=== PATIENT | male | born 1940 | race Caucasian/White ===

== ENCOUNTER 2018-04-12 15:15 | Inpatient (IN) | payer OTHER ==
--- OUTSIDE RECORDS SUMMARY | 2018-04-12 15:37 | XMS REPORT | Clinical Summary ---
:1940 Author Organization [facility] Address [address] [place] [address] Care Team Providers Name Role Phone Asked, No Pcp Primary Care Provider Unavailable Allergies No Known Allergies Medications Medication Sig Dispensed Refills Start Date End Date Status metFORMIN (GLUCOPHAGE) Take 1,000 mg by 0 Active 1000 MG tablet mouth 2 (two) times a day with meals. Active Problems Problem Noted Date Essential hypertension, benign 02/03/2016 Type II or unspecified type diabetes mellitus without mention of 02/03/2016 complication, uncontrolled Open wound of left foot 02/03/2016 GALDINO (obstructive sleep apnea) 02/03/2016 Heart block AV complete 02/02/2016 Family History Medical History Relation Name Comments Stroke Father Heart disease Mother Relation Name Status Comments Father Mother Social History Tobacco Use Types Packs/Day Years Used Date Former Smoker Alcohol Use Drinks/Week oz/Week Comments No Sex Assigned at Date Recorded Not on file Job Start Date Occupation Industry Not on file Not on file Not on file Travel History Travel Start Travel End No recent travel history available. Last Filed Vital Signs Not on file Plan of Treatment Health Maintenance Due Date Last Done Comments DIABETIC RETINAL EYE EXAM 1940 DIABETIC FOOT EXAM 1952 URINE MICROALBUMIN 1952 COLON CANCER SCREENING 1992 SHINGRIX VACCINE (1 of 2) 1992 ZOSTER VACCINE 2002 PNEUMOCOCCAL POLYSACCHARIDE VACCINE AGE 65 AND OVER 2007 PNEUMOCOCCAL-13 2007 INFLUENZA VACCINE 12/28/2017 Implants Implanted Type Area Reporting Coordinator Device Shelf Model / Identifier Expiration Serial / Date Lot Valve, 6248val, Adjustable, Us Mkt, En - [id number] Cardiac Pacing N/A: [employer] CRM 08/27/2016 [id number] / Implanted: 02/04/2016 (Quantity not on file) Leads or N/A [employer] / Electrodes or [id number] Accessories Lead, Pacemaker Bipolar Fix Forming Atrial And Ventricular Steroid Eluting 52 Centimeter Capsure Fix Novus - [id number] Cardiac Pacing N/A: [employer] [facility] 10/08/2017 5076 52 / Implanted: 02/04/2016 (Quantity not on file) Leads or N/A [employer] [id number] / Electrodes or [id number] Accessories Lead 5076-65 Lead-Bipolar Elisa Screw-In - Lead - [id number] Cardiac Pacing N/A: [employer] [facility] 03/27/2016 5076 65 / Implanted: 02/04/2016 (Quantity not on file) Leads or N/A [employer] [id number] / Electrodes or [id number] Accessories 88cm Attain Ability Otw Lead, Model 4196, Dual-Electrode Left Ventricular - [id number] Cardiac Pacing N/A: [facility] 07/30/2016 [id number] 88 / Implanted: 02/04/2016 (Quantity not on file) Leads or N/A [employer] [id number] / Electrodes or [id number] Accessories Safesheath2 - [id number] IPM SUPPLIES N/A: [employer] [facility]9 / Implanted: 02/04/2016 (Quantity not on file) PATIENT N/A [employer] / BILLABLE Safesheath2 - [id number] IPM SUPPLIES N/A: [employer] [facility] / Implanted: 02/04/2016 (Quantity not on file) PATIENT N/A [employer] / BILLABLE Safesheath2 - [id number] IPM SUPPLIES N/A: [employer] [facility] / Implanted: 02/04/2016 (Quantity not on file) PATIENT N/A [employer] 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 For more information, please contact:Delbert Vaguhan[address] [place] [address]
--- OUTSIDE RECORDS SUMMARY | 2018-04-12 15:37 | XMS REPORT ---
:1940 [facility] Address [address] [place] [address] Dr. Espinoza [address] [place] [id number] Care Team Providers Name Role Phone PAM GARDUNO Primary Care Provider Unavailable ISMAEL ALCAZAR Unavailable Unavailable Problems This patient has no known problems. Allergies, Adverse Reactions, Alerts This patient has no known allergies or adverse reactions. Medications This patient has no known medications. Encounters Start End Encounter Admission Attending Care Care Encounter Date/Time Date/Time Type Type Clinicians Facility Department ID 2017-01-28 2017-01-28 Outpatient [facility] [id number] 00:01:00 00:01:00 2016-12-28 2016-12-28 Outpatient [facility] [id number] 00:01:00 00:01:00 2016-11-27 2016-11-27 Outpatient [facility] [id number] 00:01:00 00:01:00 2016-10-28 2016-10-28 Outpatient [facility] [id number] 00:01:00 00:01:00 Results Test Description Test Time Test Comments Text Results Atomic Results Result Comments Culture, Wound Nonsurgical 2016-10-22 11:36:00 Specimen: FootCollected: 10/18/2016 13:00 Status: Final Last Updated: 10/22/2016 11:36 Gram Stain (Final) (Final) 10/19/16 No organsims seen, No WBC's seen Culture Result (Final) (Final) 10/19/16 Growth too young to evaluate at 24 hours-reincubated 10/20/16 Many Diphtheroids 10/21/16 Anaerobic culture:No anaerobes isolated at 3 days Culture, Wound Nonsurgical 2016-10-21 09:33:00 Specimen: ToeCollected: 13:00 Status: Final Last Updated: 10/21/2016 09:33 Gram Stain (Final) (Final) 10/19/16 No WBC'S , Few Gram variable rods Culture Result (Final) (Final) 10/19/16 Growth too young to evaluate at 24 hours-reincubated 10/20/16 Many Diphtheroids 10/21/16 Anaerobic culture:No anaerobes isolated at 3 days
[2018-04-12] MEDS ORDERED: ACETAMINOPHEN 325 MG TABLET PO PRN (16:23)
[2018-04-12] MEDS ORDERED: VANCOMYCIN/NS 1 gm 1 GM/250 ML BAG IVPB SCH ×2 (17:00→21:15)
[2018-04-12 17:03] VITALS: BMI 28.5
[2018-04-12] MEDS: PIPER/TAZO/NS 3.375gm 3.375 GM/100 ML BAG IV SCH (17:15)
[2018-04-12 17:19] LABS: Absolute Lymphocytes (CBC) 1.9 K/uL (0.7-4.9); Absolute Monocytes 0.9 K/uL (0.1-1.3); Basophils % 0.2 % (0-1.3); Eosinophils % 2.5 % (0-4.4); Hematocrit 38.9 % (39.6-49.0); Lymphocytes % 18.9 % (15.3-44.8); MCH 29.6 pg (27.0-35.0); MCV 86.3 fL (80-100); MPV 8.5 fL (7.6-11.3); Monocytes % 8.9 % (3.3-12.3); RBC Red Blood Cell Count 4.51 M/uL (4.33-5.43)
[2018-04-12 17:39] LABS: Protime INR 1.06
[2018-04-12 17:40] LABS: Potassium 4.2 mmol/L (3.5-5.1)
[2018-04-12 18:06] LABS: Blood Morphology Comment NOT SEEN (NOT SEEN); Platelet Estimate ADEQ; Urine White Blood Cell Casts OK
--- NOTE | 2018-04-12 20:15 | RAD REPORT ---
EXAM DESCRIPTION: Eva Pa And Lat (2 Views)04/12/2018 8:07 pm CLINICAL HISTORY: Hypertension COMPARISON: 2011 FINDINGS: Mild left basilar lung opacities probably are chronic. The lungs appear clear of acute infiltrate. The heart is mildly enlarged. Pacemaker leads are in naseem ce. IMPRESSION: No acute abnormalities displayed
[2018-04-12] MEDS ORDERED: GLUCAGON 1 MG/VIAL IM PRN (20:41)
[2018-04-12] MEDS ORDERED: D50W 25 GM/50 ML SYRINGE IV PRN (20:41)
--- NOTE | 2018-04-12 21:15 | P.HP ---
Certification for Inpatient Patient admitted to: Inpatient With expected LOS: >2 Midnights Practitioner: I am a practitioner with admitting privileges, knowledge of patient current condition, hospital course, and medical plan of care. Services: Services provided to patient in accordance with Admission requirements found in Title 42 Section 412.3 of the Code of Federal Regulations Patient History Date of Service: 04/12/18 Reason for admission: OSTEOMYELITIS R FOOT History of Present Illness: MR. SIMONS WHO HAS HAD DIABETIC OSTEOMYELITIS OF FOOT LAST YEAR, WAS DOING LOT BETTER THIS YEAR WITH RESIDUAL ULCERS BOTH FEET. FROM FOUR ULCERS HE WAS DOWN TO 3 ULCERS. ULCERS WERE GETTING SMALLER. WE HAVE TRIED TO GET HIM TWO DIFFERENT OFF LOADING BOOTS. HE REFUSES TO WEAR THEM THEY ARE UNCOMFORTABLE. HE CAN'T DRIVEWITH THEM. HE ALSO GETS HIS FEET WET WHEN IT RAINS AND HE HAS TO WALK THROUGH WET AREAS. I ASKED HIM IF HE DRIES THE FEET AND CLEANS THE ULCERS IF HE GOES THROUGH WET AREAS AND HE SAID NO. JUST AFTER A RAIN SPELL, ALL OF A SUDDEN HE GOT WORSE , THE ULCERS GOT TOO MOIST AND DEVELOPED TUNNING IN TWO AREAS ON ULCERS. I DEBRIDED. I DID X RAYS AND IT SHOWED NEW OSTEOMYELITIS ON R SIDE. TODAY HE HAS ONE MORE TUNNEL AT 1 PM AREA ON RIGHT ULCER TRACKING TO AN OPENING ABOUT AN INCH APART. I DECIDED TO ADMIT HIM FOR SURGICAL DEBRIDMENT UNDER ANESTHESIAIF NEED. I STARTED TWO ABX , ADIVSED PICC LINE AND POSSIBLE HOME OR NH WITH FU. Allergies No Known Allergies Allergy (Verified 04/12/18 17:20) Home Medications: Metformin HCl [Metformin HCl ER] 500 mg PO BID 08/03/17 Collagenase [Santyl Ointment] 30 appl TOP DAILY #1 tube 08/08/17 Amlodipine [Norvasc] 5 mg PO DAILY 10/27/17 Atorvastatin Calcium [Lipitor] 10 mg PO BEDTIME 10/27/17 Cholecalciferol (Vitamin D3) [Vitamin D3] 1,000 unit PO DAILY 10/27/17 Duloxetine HCl [Cymbalta] 30 mg PO DAILY 10/27/17 Furosemide [Lasix] 20 mg PO BID 10/27/17 Lidocaine 5% Patch [Lidoderm 5% Patch] 1 patch TD DAILY 10/27/17 Lisinopril [Prinivil] 20 mg PO BID 10/27/17 Loperamide [Imodium] 2 mg PO Q8HP PRN 10/27/17 Tramadol HCl [Ultram] 50 mg PO Q4HP PRN 10/27/17 diphenhydrAMINE HCl [Diphenhydramine HCl] 25 mg PO Q6HP PRN 10/27/17 glyBURIDE [Glyburide] 5 mg PO DAILY 10/27/17 - Past Medical/Surgical History Has patient received pneumonia vaccine in the past: Yes Diabetic: Yes -: Diabetes mellitus type 2 -: Hypertension -: CHF, systolic dysfunction -: History pacemaker -: Hyperlipidemia -: Obesity -: Obstructive sleep apnea -: Chronic lower extremity edema -: Chronic diabetic foot ulcers -: BPH -: Chronic pain -: Hernia repair -: sinus surgery -: right great toe partial amputation -: Appendectomy -: bilateral lens (cataract) Psychosocial/ Personal History: He currently lives by himself. He is . He has multiple children. - Family History Father -: Heart disease Mother -: Stroke - Social History Smoking Status: Former smoker Alcohol use: No CD- Drugs: No Caffeine use: Yes Place of Residence: Home Review of Systems 10-point ROS is otherwise unremarkable Integumentary: As per HPI Physical Examination - Vital Signs Temperature: 97.0 F Blood Pressure: 136/64 Pulse: 73 Respirations: 16 Pulse Ox (%): 98 - Physical Exam General: Alert, Mild distress HEENT: Atraumatic, PERRLA, Mucous membr. moist/pink, EOMI, Sclerae nonicteric Neck: Supple, 2+ carotid pulse no bruit, No LAD, Without JVD or thyroid abnormality Respiratory: Clear to auscultation bilaterally, Normal air movement Cardiovascular: Regular rate/rhythm, Normal S1 S2 Gastrointestinal: Normal bowel sounds, No tenderness Musculoskeletal: No tenderness Integumentary: Diabetic ulcer (WITH OSTEOMYELITIS R FOOT AND TOTAL ONE ULCER ON R PLANTER, ONE ON SECOND TOE R SIDE AND TWO ON L SIDE SOLE. ) Neurological: Normal gait, Normal speech, Normal strength at 5/5 x4 extr, Normal tone, Normal affect Lymphatics: No axilla or inguinal lymphadenopathy - Studies Laboratory Data (last 24 hrs) 04/12/18 17:06: Sodium 136, Potassium 4.2, BUN 48 H, Creatinine 1.70 H, Glucose 266 H 04/12/18 17:06: PT 12.5, INR 1.06, APTT 34.8 04/12/18 17:06: WBC 10.0, Hgb 13.3 L, Hct 38.9 L, Plt Count 278 Assessment and Plan - Problems (Diagnosis) (1) Diabetic foot ulcer Onset Date: 08/04/17 Current Visit: No Status: Acute Plan: DR COLMENARES TO DO SURGICAL DEBRIDEMENT. IV ABX POSS HOME OR NH FOR IT. Qualifiers: Diabetic foot ulcer location: other Diabetes mellitus type: type 2 (2) Osteomyelitis Onset Date: 08/04/17 Current Visit: No Status: Suspected Plan: ABOVE. MULTIPLE ULCERS. Qualifiers: Osteomyelitis location: foot Laterality: right - Advance Directives Does patient have a Living Will: No Does patient have a Durable POA for Healthcare: No
[2018-04-12] MEDS: INSULIN -REGULAR HUMAN 50 UNIT/0.5 ML ML SQ SCH (21:45)
[2018-04-12] MEDS ORDERED: VANCOMYCIN 1.25 GM in NA CHLORIDE 0.9% 250 ML IVPB SCH (22:00)
[2018-04-12] MEDS ORDERED: VANCOMYCIN 500 MG/VIAL ONE (22:56)
[2018-04-12] MEDS ORDERED: VANCOMYCIN 1 GM/VIAL ONE (22:56)
[2018-04-12] MEDS ORDERED: NA CHLORIDE 0.9% 250 ML ONE (23:00)
[2018-04-12] MEDS ORDERED: VANCOMYCIN 1.25 GM in NA CHLORIDE 0.9% 250 ML IVPB ONE (23:00)
[2018-04-13] MEDS: PIPER/TAZO/NS 3.375gm 3.375 GM/100 ML BAG IV SCH ×3 (01:19→17:00)
[2018-04-13 02:07] LABS: Urine Appearance CLEAR; Urine Bilirubin NEGATIVE (NEG); Urine Blood NEGATIVE (NEG); Urine Color YELLOW; Urine Glucose NEGATIVE (NEG); Urine Protein NEGATIVE (NEG); Urine Specific Gravity 1.015 (1.005-1.030); Urine Urobilinogen 0.2 mg/dL (0.2-1.0)
[2018-04-13 02:11] LABS: Urine Microscopic Reflex NO UMIC
[2018-04-13] MEDS: INSULIN -REGULAR HUMAN 50 UNIT/0.5 ML ML SQ SCH ×3 (07:30→16:30)
[2018-04-13] MEDS ORDERED: NA CHLORIDE 0.9% 1,000 ML ONE (09:25)
[2018-04-13] MEDS ORDERED: FENTANYL CITR 100 MCG/2 ML ONE (09:50)
[2018-04-13] MEDS ORDERED: PROPOFOL 200 MG/20 ML VIAL IV ONE (09:50)
[2018-04-13] MEDS ORDERED: LIDOCAINE 1% MPF 2 ML AMPULE ONE (09:52)
[2018-04-13] MEDS ORDERED: EPHEDRINE SULF 50 MG/10 ML SYR ONE (10:37)
[2018-04-13] MEDS ORDERED: COLLAGENASE 30 GM OINTMENT TOP ONE (10:39)
--- NOTE | 2018-04-13 10:40 | P.OP ---
Preoperative diagnosis: Infected diabetic ulcer both feet Postoperative diagnosis: same Primary procedure: Debridement right foot wound 5x3 cm to bone Secondary procedure: Debridement left foot wound 4x2 cm to sq and 2x3 cm to sq Anesthesia: general Estimated blood loss: min Specimen: bone and wound culture Findings: as above Complications: None Transferred to: Recovery Room Condition: Good
[2018-04-13 11:23] VITALS: O2SAT 97
--- NOTE | 2018-04-13 11:49 | OP ---
Date of Procedure: 04/13/2018 Surgeon: Ritchie Cunha MD Preoperative Diagnosis: Infected wound, both feet. Postoperative Diagnosis: Infected wound, both feet. Procedures: 1.Debridement of right foot wound, 5 x 3 cm, to subcutaneous tissue muscle and bone. 2.Debridement of left foot wound, 4 x 2 cm, to subcutaneous tissue, and 2 x 3 cm, subcutaneous tissu e. Estimated Blood Loss: Minimal. Specimen: Bone and culture from the infected wound on the right foot. Findings: As above. Anesthesia: General. Complications: None. Disposition: The patient tolerated the procedure in stable condition and taken to Recovery in good g eneral condition. Procedure In Detail: The patient was brought to the OR and placed in the supine position. General a nesthesia was begun. The patient was prepped and draped in sterile fashion and then a 15-blade, iris scissors, and cautery utilized, first on the right foot. There was an ulcer that was approximately 3 cm in diameter and about 2 cm away there was another ulcer that was approximately 1.5 cm in diamete r. They tunneled and connected to each other with some infected tissue deep to the plantar aspect of the first toe near the metatarsal head. A 5 x 3 cm incision was made to include both of these wound s down through subcutaneous tissue, muscle, and the metatarsal head appears to be exposed and eroded slightly. Cultures were done from the wound itself. All the necrotic tissue was debrided. Wound ir rigated. Bleeding controlled with cautery and collagenase dressing applied. On the left foot, the p atient had 2 ulcers that were not connected to each other, one on the medial aspect and one on the la teral aspect and near the metatarsal heads. One was approximately 2 cm in diameter, but had and larg e callus around it and infected tissue in it and debridement was done all the way around 4 x 2 cm inc ision was made down to the subcutaneous tissue and all nonhealing wound was excised and sent to Patho logy. There was another wound that was approximately 2 cm in diameter and 1 cm border was taken all the way around it to get all the callus and infected tissue out down through the subcutaneous tissue. Both wounds irrigated. Bleeding controlled with cautery. Collagenase dressing was applied. The p atient was awakened and taken to Recovery in good general condition. /MODL Voice ID: [id number] Report ID: [id number]
--- NOTE | 2018-04-13 12:35 | EKG ---
Test Date: 2018-04-12 Test Time: 17:38:01 Project Intern: CHRISTINE MEASUREMENT RESULTS: Intervals: Rate: 63 MA: QRSD: 190 QT: 504 QTc: 515 Jensen: P: MA: QRS: -90 T: 83 INTERPRETIVE STATEMENTS: Electronic ventricular pacemaker Compared to ECG 08/03/2017 11:55:58 Ventricular premature complex(es) no longer present Electronically Signed On 04-13-18 12:33:00 CLIENT MANAGER by José Pratt
--- NOTE | 2018-04-13 13:13 | P.PN ---
Subjective Date of Service: 04/13/18 Chief Complaint: OSTEOMYELITIS R FOOT Subjective: No new changes DR. COLMENARES DID SURGERY, DEBRIDEMENT. NOW IV ABX AT [facility]. Review of Systems 10-point ROS is otherwise unremarkable Physical Examination - Vital Signs Temperature: 97.4 F Blood Pressure: 121/52 Pulse: 60 Respirations: 16 Pulse Ox (%): 100 - Physical Exam General: Alert, Mild distress, Obese HEENT: Atraumatic, PERRLA, EOMI Neck: Supple, JVD not distended Respiratory: Clear to auscultation bilaterally, Normal air movement Cardiovascular: Regular rate/rhythm, Normal S1 S2 Gastrointestinal: Normal bowel sounds, No tenderness Musculoskeletal: No tenderness Integumentary: No rashes Neurological: Normal speech, Normal tone, Normal affect Lymphatics: No axilla or inguinal lymphadenopathy - Studies Laboratory Data (last 24 hrs) 04/12/18 17:06: Sodium 136, Potassium 4.2, BUN 48 H, Creatinine 1.70 H, Glucose 266 H 04/12/18 17:06: PT 12.5, INR 1.06, APTT 34.8 04/12/18 17:06: WBC 10.0, Hgb 13.3 L, Hct 38.9 L, Plt Count 278 Medications List Reviewed: Yes Assessment And Plan - Current Problems (Diagnosis) (1) Diabetic foot ulcer Onset Date: 08/04/17 Current Visit: No Status: Acute Plan: DR COLMENARES TO DO SURGICAL DEBRIDEMENT. IV ABX POSS HOME OR NH FOR IT. PICC LINE IV ABX LT[facility]. CULTURE PENDING , BONE CULTURE DONE. Qualifiers: Diabetic foot ulcer location: other Diabetes mellitus type: type 2 (2) Osteomyelitis Onset Date: 08/04/17 Current Visit: No Status: Suspected Plan: ABOVE. MULTIPLE ULCERS. Qualifiers: Osteomyelitis location: foot Laterality: right
--- NOTE | 2018-04-13 13:19 | PREOPCON ---
Date of Consultation: 04/12/2018 Reason: Infected wounds, both feet. History Of Present Illness: The patient is a 77-year-old gentleman comes in with nonhealing wounds o n both feet with possible osteo on the right foot. He has chronic diabetic ulcers for many years and they had improved, however, he is noncompliant with offloading and he gets into rain water and does not care for his wounds well as an outpatient and the ulcers have gotten worse. He saw Dr. Pool who admitted him with possible osteo because of increasing redness near the ulcers on the right foot and he started IV antibiotics and I was consulted for surgical debridement. No fever or chills. No pur ulent discharge. Diabetic neuropathy does not allow much sensation. He lives by himself. No sore t hroat, runny nose, cough, headaches, or dizziness. No chest pain. Review of Systems: Otherwise unremarkable. Past Medical History: Significant for type 2 diabetes, hypertension, CHF, hyperlipidemia, sleep apne a, and chronic pain. Past Surgical History: Pacemaker, hernia surgery, sinus surgery, right great toe partial amputation, appendectomy, and cataract surgery. Allergies: NO ALLERGIES. Social History: He used to smoke, does not smoke, does not drink. Family History: Significant for heart disease and stroke. Physical Examination: Vital Signs: Stable. He is afebrile. General: He is awake, alert, and oriented x3. Head and Neck: Cranial nerves 2 through 12 grossly within normal limits. No neck masses. No JVD. Throat clear. Neck is supple. Chest: Clear. Heart: S1 and S2. Abdomen: Soft. Extremities: Palpable dorsalis pedis and posterior tibial pulses. On the right foot, near the plant ar aspect of the first metatarsal head, there are 2 wounds, there is a surrounding erythema and they appeared to be possibly connecting. There is necrotic tissue in the wounds. There are 2 ulcers on t he plantar aspect of the left foot as well towards the metatarsal head the pressure points area and t hey have a significant amount of fibrin in it, need debridement and they have hypertrophic skin aroun d the edges and there is minimal erythema around those ulcers. Laboratory Data: White count is 10. INR is 1.06. Glucose 266. Bone scan is pending. Assessment: A 77-year-old gentleman with bilateral foot ulcers, infected, possible osteomyelitis. Recommendations: Continue IV antibiotics. We will take him to the operating room for surgical debri irais of all of the wounds and if they do connect, I will open up the tunnel. The patient was advis ed the importance of wound care, offloading and nutritional optimization, controlling his sugar, it w ill allow best chance for these wounds to heal. He understands the risks, benefits, and alternatives and agrees to procedure. ADELE/STEPHANIA Voice ID: [id number] Report ID: [id number]
[2018-04-13 19:19] VITALS: BP 153/67; TEMP 97.5
[2018-04-13] MEDS ORDERED: VANCOMYCIN 1.75 GM in NA CHLORIDE 0.9% 500 ML IVPB SCH (22:00)
--- NOTE | 2018-04-14 17:19 | P.DS ---
Admission Date: 04/12/18 Discharge Date: 04/14/18 Disposition: [facility] Reason for Admission: OSTEOMYELITIS R FOOT - Problems (1) Diabetic foot ulcer Onset Date: 08/04/17 Status: Acute Qualifiers: Diabetic foot ulcer location: other Diabetes mellitus type: type 2 (2) Osteomyelitis Onset Date: 08/04/17 Status: Suspected Qualifiers: Osteomyelitis location: foot Laterality: right Brief History of Present Illness: MR. SIMONS WHO HAS HAD DIABETIC OSTEOMYELITIS OF FOOT LAST YEAR, WAS DOING LOT BETTER THIS YEAR WITH RESIDUAL ULCERS BOTH FEET. FROM FOUR ULCERS HE WAS DOWN TO 3 ULCERS. ULCERS WERE GETTING SMALLER. WE HAVE TRIED TO GET HIM TWO DIFFERENT OFF LOADING BOOTS. HE REFUSES TO WEAR THEM THEY ARE UNCOMFORTABLE. HE CAN'T DRIVEWITH THEM. HE ALSO GETS HIS FEET WET WHEN IT RAINS AND HE HAS TO WALK THROUGH WET AREAS. I ASKED HIM IF HE DRIES THE FEET AND CLEANS THE ULCERS IF HE GOES THROUGH WET AREAS AND HE SAID NO. JUST AFTER A RAIN SPELL, ALL OF A SUDDEN HE GOT WORSE , THE ULCERS GOT TOO MOIST AND DEVELOPED TUNNING IN TWO AREAS ON ULCERS. I DEBRIDED. I DID X RAYS AND IT SHOWED NEW OSTEOMYELITIS ON R SIDE. TODAY HE HAS ONE MORE TUNNEL AT 1 PM AREA ON RIGHT ULCER TRACKING TO AN OPENING ABOUT AN INCH APART. I DECIDED TO ADMIT HIM FOR SURGICAL DEBRIDMENT UNDER ANESTHESIAIF NEED. I STARTED TWO ABX , ADIVSED PICC LINE AND POSSIBLE HOME OR NH WITH FU. MR. SIMONS UNDERWENT DEBRIDEMENT FOR BOTH FEET BY DR COLMENARES. HE ALSO DID BONE BIOPSY FOR OM. HE IN STABLE CONDITION IS TRANSFERRED TO [facility] FOR IV ABX AND MANAGEMENT OF OSTEOMYELITIS WITH HELP OF SHRADDHA CORREA. Vital Signs/Physical Exam: Temp Pulse Resp BP Pulse Ox 97.5 F 63 16 153/67 H 95 04/13/18 16:00 04/13/18 16:00 04/13/18 16:00 04/13/18 16:00 04/13/18 16:00 Laboratory Data at Discharge: WBC 10.0 K/uL (4.3-10.9) 04/12/18 17:06 Hgb 13.3 g/dL (13.6-17.9) L 04/12/18 17:06 Hct 38.9 % (39.6-49.0) L 04/12/18 17:06 Plt Count 278 K/uL (152-406) 04/12/18 17:06 PT 12.5 SECONDS (9.5-12.5) 04/12/18 17:06 INR 1.06 04/12/18 17:06 APTT 34.8 SECONDS (24.3-36.9) 04/12/18 17:06 Sodium 136 mmol/L (136-145) 04/12/18 17:06 Potassium 4.2 mmol/L (3.5-5.1) 04/12/18 17:06 BUN 48 mg/dL (7-18) H 04/12/18 17:06 Creatinine 1.70 mg/dL (0.55-1.3) H 04/12/18 17:06 Glucose 266 mg/dL (74-106) H 04/12/18 17:06 Home Medications: Metformin HCl [Metformin HCl ER] 500 mg PO BID 08/03/17 Collagenase [Santyl Ointment] 30 appl TOP DAILY #1 tube 08/08/17 Amlodipine [Norvasc] 5 mg PO DAILY 10/27/17 Atorvastatin Calcium [Lipitor] 10 mg PO BEDTIME 10/27/17 Cholecalciferol (Vitamin D3) [Vitamin D3] 1,000 unit PO DAILY 10/27/17 Duloxetine HCl [Cymbalta] 30 mg PO DAILY 10/27/17 Furosemide [Lasix] 20 mg PO BID 10/27/17 Lidocaine 5% Patch [Lidoderm 5% Patch] 1 patch TD DAILY 10/27/17 Lisinopril [Prinivil] 20 mg PO BID 10/27/17 Loperamide [Imodium] 2 mg PO Q8HP PRN 10/27/17 Tramadol HCl [Ultram] 50 mg PO Q4HP PRN 10/27/17 diphenhydrAMINE HCl [Diphenhydramine HCl] 25 mg PO Q6HP PRN 10/27/17 glyBURIDE [Glyburide] 5 mg PO DAILY 10/27/17 Followup: Avila Pool MD [Primary Care Provider] - Ritchie Colmenares MD [ACTIVE - CAN ADMIT] -
== END 2018-04-13 18:10 | DRG 623 ==
LOC: 2ND 15:34
PROVIDERS: ADMIT Internal Medicine; ATTEND Internal Medicine
PROC: 0QBN0ZZ Excision of Right Metatarsal, Open Approach (ICD-10-PCS; 2018-04-13)
PROC: 0JBQ0ZZ Excision of Right Foot Subcutaneous Tissue and Fascia, Open Approach (ICD-10-PCS; principal; 2018-04-13 10:00)
DX: E11.621 Type 2 diabetes mellitus with foot ulcer (principal); M86.171 Other acute osteomyelitis, right ankle and foot; L97.528 Non-pressure chronic ulcer of other part of left foot with other specified severity; I50.22 Chronic systolic (congestive) heart failure; E11.69 Type 2 diabetes mellitus with other specified complication; L97.514 Non-pressure chronic ulcer of other part of right foot with necrosis of bone; E11.40 Type 2 diabetes mellitus with diabetic neuropathy, unspecified; E78.5 Hyperlipidemia, unspecified; Z95.0 Presence of cardiac pacemaker; I11.0 Hypertensive heart disease with heart failure
CPT/HCPCS: 11042; 36415; 71046; 80048; 81003; 82962; 83036; 85025; 85610; 85730; 87070; 87075; 87205; 88304; 93005; J2001; J2543; J2704; J3010; J3370; J3590; J7030

== ENCOUNTER 2019-08-06 12:08 | Observation (INO) | payer OTHER ==
--- OUTSIDE RECORDS SUMMARY | 2019-08-06 12:19 | XMS REPORT ---
:1940 Author Organization [facility] Address [address] [place] [place] [address] Care Team Providers Name Role Phone GARDUNO, PAM REEVES Primary Care Provider Unavailable ISMAEL ALCAZAR Unavailable Unavailable Payers Payer Name Policy Type Policy Number Effective Date Expiration Date Problems This patient has no known problems. Allergies, Adverse Reactions, Alerts This patient has no known allergies or adverse reactions. Medications This patient has no known medications. Encounters Start End Encounter Admission Attending Care Care Encounter Date/Time Date/Time Type Type Clinicians Facility Department ID 2018-12-05 2018-12-05 Outpatient [facility] [id number] 13:39:00 13:39:00 2017-01-28 2017-01-28 Outpatient [facility] [id number] 00:01:00 00:01:00 2016-12-28 2016-12-28 Outpatient [facility] [id number] 00:01:00 00:01:00 2016-11-27 2016-11-27 Outpatient [facility] [id number] 00:01:00 00:01:00 2016-10-28 2016-10-28 Outpatient [facility] [id number] 00:01:00 00:01:00 Results Test Description Test Time Test Comments Text Results Atomic Results Result Comments CBC W/AUTO DIFF 2019-01-19 18:49:00 Test Item Value Reference Range Comments WHITE BLOOD CELL (test code=WBC) 9.8 K/mm3 3.5-11.0 RED BLOOD CELL (test code=RBC) 2.80 M/mm3 4.70-6.10 HEMOGLOBIN (test code=HGB) 7.4 G/DL 12.3-15.9 HEMATOCRIT (test code=HCT) 25.2 % 35.8-46.7 MEAN CELL VOLUME (test code=MCV) 90.0 Fl 86.3-98.9 MEAN CELL HGB (test code=MCH) 26.4 pg 28.9-34.4 MEAN CELL HGB CONCETRATION (test 29.4 G/DL 32.1-34.5 code=MCHC) RED CELL DISTRIBUTION WIDTH (test 17.6 SD 11.5-14.5 code=RDW) PLATELET COUNT (test code=PLT) 267.0 K/mm3 150-450 MEAN PLATELET VOLUME (test 10.40 fL 7.0-9.6 code=MPV) NEUTROPHIL % (test code=NT%) 69.8 % 40-76 LYMPHOCYTE % (test code=LY%) 19.6 % 20.5-51.1 MONOCYTE % (test code=MO%) 8.9 % 1.7-9.3 EOSINOPHIL % (test code=EO%) 1.5 % 0.0-6.0 BASOPHIL % (test code=BA%) 0.2 % 0.0-2.0 NEUTROPHIL # (test code=NT#) 6.81 K/mm3 1.8-7.6 LYMPHOCYTE # (test code=LY#) 1.9 K/mm3 0.6-3.0 MONOCYTE # (test code=MO#) 0.9 K/mm3 0.2-1.5 EOSINOPHIL # (test code=EO#) 0.2 K/mm3 0.0-0.4 BASOPHIL # (test code=BA#) 0.0 K/mm3 0.0-0.2 MANUAL DIFF REQUIRED (test NO DIFF/SCN CRITERIA SLIDE REVIEW CONSISTANT WITH code=MDIFF) AUTO DIFFERENTIAL. RBC [id number] 18:49:00 Test Item Value Reference Range Comments TARGET CELLS (test code=TGT) 2+ ON SCAN NONE STOMATOCYTES (test code=STO) 1+ ON SCAN NONE CBC W/AUTO [id number] 18:48:00 Test Item Value Reference Range Comments WHITE BLOOD CELL (test 9.8 K/mm3 3.5-11.0 code=WBC) RED BLOOD CELL (test code=RBC) 2.80 M/mm3 4.70-6.10 HEMOGLOBIN (test code=HGB) 7.4 G/DL 12.3-15.9 HEMATOCRIT (test code=HCT) 25.2 % 35.8-46.7 MEAN CELL VOLUME (test 90.0 Fl 86.3-98.9 code=MCV) MEAN CELL HGB (test code=MCH) 26.4 pg 28.9-34.4 MEAN CELL HGB CONCETRATION 29.4 G/DL 32.1-34.5 (test code=MCHC) RED CELL DISTRIBUTION WIDTH 17.6 SD 11.5-14.5 (test code=RDW) PLATELET COUNT (test code=PLT) 267.0 K/mm3 150-450 MEAN PLATELET VOLUME (test 10.40 fL 7.0-9.6 code=MPV) NEUTROPHIL % (test code=NT%) 69.8 % 40-76 LYMPHOCYTE % (test code=LY%) 19.6 % 20.5-51.1 MONOCYTE % (test code=MO%) 8.9 % 1.7-9.3 EOSINOPHIL % (test code=EO%) 1.5 % 0.0-6.0 BASOPHIL % (test code=BA%) 0.2 % 0.0-2.0 NEUTROPHIL # (test code=NT#) 6.81 K/mm3 1.8-7.6 LYMPHOCYTE # (test code=LY#) 1.9 K/mm3 0.6-3.0 MONOCYTE # (test code=MO#) 0.9 K/mm3 0.2-1.5 EOSINOPHIL # (test code=EO#) 0.2 K/mm3 0.0-0.4 BASOPHIL # (test code=BA#) 0.0 K/mm3 0.0-0.2 MANUAL DIFF REQUIRED (test NO DIFF/SCN CRITERIA SLIDE REVIEW CONSISTANT code=MDIFF) WITH AUTO DIFFERENTIAL. CBC W/AUTO [id number] 18:48:00 Test Item Value Reference Range Comments WHITE BLOOD CELL (test 9.8 K/mm3 3.5-11.0 code=WBC) RED BLOOD CELL (test code=RBC) 2.80 M/mm3 4.70-6.10 HEMOGLOBIN (test code=HGB) 7.4 G/DL 12.3-15.9 HEMATOCRIT (test code=HCT) 25.2 % 35.8-46.7 MEAN CELL VOLUME (test 90.0 Fl 86.3-98.9 code=MCV) MEAN CELL HGB (test code=MCH) 26.4 pg 28.9-34.4 MEAN CELL HGB CONCETRATION 29.4 G/DL 32.1-34.5 (test code=MCHC) RED CELL DISTRIBUTION WIDTH 17.6 SD 11.5-14.5 (test code=RDW) PLATELET COUNT (test code=PLT) 267.0 K/mm3 150-450 MEAN PLATELET VOLUME (test 10.40 fL 7.0-9.6 code=MPV) NEUTROPHIL % (test code=NT%) 69.8 % 40-76 LYMPHOCYTE % (test code=LY%) 19.6 % 20.5-51.1 MONOCYTE % (test code=MO%) 8.9 % 1.7-9.3 EOSINOPHIL % (test code=EO%) 1.5 % 0.0-6.0 BASOPHIL % (test code=BA%) 0.2 % 0.0-2.0 NEUTROPHIL # (test code=NT#) 6.81 K/mm3 1.8-7.6 LYMPHOCYTE # (test code=LY#) 1.9 K/mm3 0.6-3.0 MONOCYTE # (test code=MO#) 0.9 K/mm3 0.2-1.5 EOSINOPHIL # (test code=EO#) 0.2 K/mm3 0.0-0.4 BASOPHIL # (test code=BA#) 0.0 K/mm3 0.0-0.2 MANUAL DIFF REQUIRED (test NO DIFF/SCN CRITERIA SLIDE REVIEW CONSISTANT code=MDIFF) WITH AUTO DIFFERENTIAL. CBC W/AUTO [id number] 18:15:00 Test Item Value Reference Range Comments WHITE BLOOD CELL (test code=WBC) 9.8 K/mm3 3.5-11.0 RED BLOOD CELL (test code=RBC) 2.80 M/mm3 4.70-6.10 HEMOGLOBIN (test code=HGB) 7.4 G/DL 12.3-15.9 HEMATOCRIT (test code=HCT) 25.2 % 35.8-46.7 MEAN CELL VOLUME (test code=MCV) 90.0 Fl 86.3-98.9 MEAN CELL HGB (test code=MCH) 26.4 pg 28.9-34.4 MEAN CELL HGB CONCETRATION (test code=MCHC) 29.4 G/DL 32.1-34.5 RED CELL DISTRIBUTION WIDTH (test code=RDW) 17.6 SD 11.5-14.5 PLATELET COUNT (test code=PLT) 267.0 K/mm3 150-450 MEAN PLATELET VOLUME (test code=MPV) 10.40 fL 7.0-9.6 NEUTROPHIL % (test code=NT%) % 40-76 LYMPHOCYTE % (test code=LY%) % 20.5-51.1 MONOCYTE % (test code=MO%) % 1.7-9.3 EOSINOPHIL % (test code=EO%) % 0.0-6.0 BASOPHIL % (test code=BA%) % 0.0-2.0 NEUTROPHIL # (test code=NT#) K/mm3 1.8-7.6 LYMPHOCYTE # (test code=LY#) K/mm3 0.6-3.0 MONOCYTE # (test code=MO#) K/mm3 0.2-1.5 EOSINOPHIL # (test code=EO#) K/mm3 0.0-0.4 BASOPHIL # (test code=BA#) K/mm3 0.0-0.2 MANUAL DIFF REQUIRED (test code=MDIFF) DIFF/SCN CRITERIA Culture, Wound [id number] 11:36:00Specimen: FootCollected: 2016 13:00 Status: Final Last Updated: 10/22/2016 11:36Gram Stain (Final) ( Final) 10/19/16 No organsims seen, No WBC's seen Culture Result (Final) ( Final) 10/19/16 Growth too young to evaluate at 24 hours-reincubated Many Diphtheroids 10/21/16 Anaerobic culture:No anaerobes isolated at 3 daysCulture, Wound [id number] 09:33:00Specimen: ToeCollected: 2016 13:00 Status: Final Last Updated: 10/21/2016 09:33 Gram Stain (Final) (Final) 10/19/16 No WBC'S , Few Gram variable rods Culture Result (Final) (Final) 10/19/16 Growth too young to evaluate at 24 hours- reincubated 10/20/16 Many Diphtheroids 10/21/16 Anaerobic culture:No anaerobes isolated at 3 days
[2019-08-06] MEDS ORDERED: NACHLORIDE 0.45% 1,000 ML IV SCH (13:00)
[2019-08-06] MEDS ORDERED: ONDANSETRON 4 MG/2 ML VIAL IV PRN (13:00)
[2019-08-06] MEDS ORDERED: POLYETHYL GLY 3350 17 GM/DOSE PO PRN (13:00)
[2019-08-06] MEDS ORDERED: DIPHENHYDRAMINE 25 MG TAB/CAP PO PRN (13:00)
[2019-08-06] MEDS ORDERED: LOPERAMIDE HCL 2 MG CAPSULE PO PRN (13:00)
[2019-08-06] MEDS ORDERED: ACETAMINOPHEN 325 MG TABLET PO PRN (13:00)
[2019-08-06] MEDS ORDERED: ONDANSETRON 4 MG (ODT) TAB PO PRN (13:00)
[2019-08-06 13:29] VITALS: BMI 28.5
[2019-08-06 13:37] LABS: Absolute Lymphocytes (CBC) 1.6 K/uL (0.7-4.9); Basophils % 0.2 % (0-1.3); Hematocrit 35.2 % (39.6-49.0); Lymphocytes % 18.5 % (15.3-44.8)
[2019-08-06 13:45] LABS: Protime INR 1.06
[2019-08-06 14:02] LABS: Albumin 2.7 g/dL (3.4-5.0); Bilirubin Direct 0.3 mg/dL (0-0.2); Bilirubin Total 0.6 mg/dL (0.2-1.0); Magnesium 2.3 mg/dL (1.8-2.4); Potassium 4.1 mmol/L (3.5-5.1); Protein, Total 8.7 g/dL (6.4-8.2); Thyroid Stimulating Hormone 1.05 uIU/mL (0.360-3.740)
--- NOTE | 2019-08-06 14:47 | RAD REPORT ---
EXAM DESCRIPTION: CT - CTHCSPWOC - 08/06/2019 2:09 pm CLINICAL HISTORY: Trauma, head and neck injury. neck pain, cva, fall COMPARISON: No comparisons TECHNIQUE: Axial 5 mm thick images of the head were obtained. Axial 2 mm thick images of the cervical spine were obtained with sagittal and coronal reconstruction images generated and reviewed. All CT scans are performed using dose optimization technique as appropriate and may include automated exposure control or mA/KV adjustment according to patient size. FINDINGS: CT HEAD WITHOUT CONTRAST: No acute hemorrhage, hydrocephalus or extra-axial collection is identified.Mild generalized brain atr ophy is noted.No areas of brain edema or midline shift. The paranasal sinuses and mastoids are clear.The calvarium is intact. CT CERVICAL SPINE WITHOUT CONTRAST: No fracture or subluxation.Disc thinning with posterior osteophyte formation lower cervical levels.No prevertebral soft tissues swelling is identified. Left carotid bulb atherosclerosis. IMPRESSION: No acute intracranial or cervical spine findings. Mild to moderate lower cervical degenerative changes. Moderate atherosclerosis left carotid bulb.
--- NOTE | 2019-08-06 15:13 | RAD REPORT ---
EXAM DESCRIPTION: Eva Ayala (2 Views)08/06/2019 2:57 pm CLINICAL HISTORY: Chest pain COMPARISON: 2018 FINDINGS: The lungs appear clear of acute infiltrate. The heart is mildly enlarged. Pacemaker leads are in place. IMPRESSION: No acute abnormalities displayed
--- NOTE | 2019-08-06 15:31 | RAD REPORT ---
EXAM DESCRIPTION: USCarotid Artery Bilateral08/06/2019 3:20 pm CLINICAL HISTORY: cva COMPARISON: None FINDINGS: The velocity of the right internal carotid artery equals 57 cm/sec. The right ICA/CCA rati o 0.7 The velocity of the left internal carotid artery equals 70 cm/sec. The left ICA/CCA ratio 1.2 Mild plaque is present within the carotid arteries. The vertebral arteries demonstrate antegrade flow 2 centimeter right thyroid nodule IMPRESSION: Mild plaque within the carotid arteries without evidence of a hemodynamically significan t stenosis 2 centimeter right thyroid nodule. Nonemergent thyroid ultrasound recommended NASCET criteria used. Mild 0-49% stenosis Moderate 50-69% stenosis Severe 70-99% stenosis
[2019-08-06] MEDS ORDERED: HYDROCODONE/APAP 10/325 TAB PO PRN (18:17)
[2019-08-06 19:05] LABS: Blood Morphology Comment NOTED (NOT SEEN); Platelet Estimate ADEQ; Poikilocytosis 1+
[2019-08-06 19:06] LABS: White Blood Cell Scan OK
[2019-08-06] MEDS: BACLOFEN 10 MG TAB PO SCH (20:23)
[2019-08-06] MEDS ORDERED: ATORVASTATIN 10 MG TAB PO SCH (21:00)
[2019-08-06] MEDS ORDERED: GLYBURIDE PO SCH (21:00)
[2019-08-07 00:06] LABS: Urine Appearance CLEAR; Urine Bilirubin NEGATIVE (NEG); Urine Blood NEGATIVE (NEG); Urine Color YELLOW; Urine Glucose TRACE (NEG); Urine Protein 1+ (NEG); Urine Specific Gravity 1.015 (1.005-1.030); Urine Urobilinogen 0.2 mg/dL (0.2-1.0)
[2019-08-07 00:07] LABS: Urine Microscopic Reflex ORDER UMIC
[2019-08-07 00:25] LABS: UR MICROALBUMIN 16.3 mg/dL (< 1.9)
[2019-08-07 00:46] LABS: Urine Bacteria <20 /HPF (NONE SEEN); Urine RBC <5 /HPF (NONE SEEN)
[2019-08-07 04:22] LABS: Absolute Lymphocytes (CBC) 1.6 K/uL (0.7-4.9); Basophils % 0.2 % (0-1.3); Hematocrit 34.1 % (39.6-49.0); Lymphocytes % 25.2 % (15.3-44.8); MPV 8.6 fL (7.6-11.3); RBC Red Blood Cell Count 3.87 M/uL (4.33-5.43)
[2019-08-07 04:30] LABS: Magnesium 2.3 mg/dL (1.8-2.4); Potassium 3.9 mmol/L (3.5-5.1)
[2019-08-07] MEDS: BACLOFEN 10 MG TAB PO SCH (08:04)
--- NOTE | 2019-08-07 08:53 | EKG ---
Test Date: 2019-08-06 Test Time: 14:25:04 Application Integration Engineer: DIANNA MEASUREMENT RESULTS: Intervals: Rate: 65 [place]: QRSD: 190 QT: 530 QTc: 551 [place]: P: IL: QRS: -85 T: 98 INTERPRETIVE STATEMENTS: Electronic ventricular pacemaker Compared to ECG 04/12/2018 17:38:01 No significant changes Electronically Signed On 08-07-19 08:52:53 CDT by José Pratt
[2019-08-07] MEDS ORDERED: DULOXETINE 30 MG CAP PO SCH (09:00)
[2019-08-07] MEDS ORDERED: FUROSEMIDE 40 MG TABLET PO SCH (09:00)
[2019-08-07] MEDS ORDERED: SPIRONOLACTONE 25 MG TABLET PO SCH (09:00)
[2019-08-07] MEDS ORDERED: HOME MED 1 EA UNK (Pravastatin Sodium [Pravastatin Sodium] 10 MG) PO SCH (09:00)
[2019-08-07] MEDS ORDERED: HOME MED 1 EA UNK (Spironolactone [Spironolactone] 50 MG) PO SCH (09:00)
[2019-08-07] MEDS ORDERED: LOSARTAN POTASSIUM 50 MG TABLET PO SCH (09:00)
[2019-08-07] MEDS ORDERED: HOME MED 1 EA UNK (Losartan Potassium [Cozaar] 100 MG) PO SCH (09:00)
[2019-08-07 09:31] VITALS: O2SAT 100
--- NOTE | 2019-08-07 11:36 | RAD REPORT ---
EXAM DESCRIPTION: US - Thyroid Para Parotid Gland - 08/07/2019 11:03 am CLINICAL HISTORY: thyroid nodule COMPARISON: August 06, 2019 carotid ultrasound FINDINGS: The right lobe of the thyroid measures 4.6 x 2.4 x 2.1 centimeters. A 2.2 centimeter isoec hoic nodule is present. It contains increased vascularity The left lobe of the thyroid measures 4 x 2 x 1.8 centimeters. The left lobe of the thyroid gland has a homogeneous echotexture IMPRESSION: 2.2 centimeter isoechoic nodule within the right lobe of the thyroid gland contains incr eased vascularity. Ultrasound-guided FNA recommended
[2019-08-07 12:10] VITALS: BP 175/81; TEMP 97.7
--- NOTE | 2019-08-07 22:25 | DS ---
Date of Discharge: 08/07/2019 Final Diagnosis: Dehydration. Secondary Diagnoses: 1.Diabetes mellitus. 2.Kidney insufficiency. 3.History of congestive heart failure. 4.Hypertension. 5.History of chronic feet ulcers. Hospital Course: Patient is 79-year-old, who comes in with vertigo, dizziness, falls at home. I rabia pect that he might have a stroke, but he did not on CT brain. MRI he cannot do because he has a pace maker. In any case, he was found to have dehydration and blood loss, so I reduced his Lasix from 80 mg once a day to 20 mg once a day. He goes to a manager of case for his care in [place]. Otherwise, c haileyically he is stable for discharge. DAQUAN/STEPHANIA Voice ID: [id number] Report ID: [id number]
== END 2019-08-07 14:11 | disposition home or self-care (01) ==
LOC: 4TH 12:14
PROVIDERS: ADMIT Internal Medicine; ATTEND Internal Medicine
DX: E86.0 Dehydration (principal); E04.1 Nontoxic single thyroid nodule; I65.23 Occlusion and stenosis of bilateral carotid arteries; M25.78 Osteophyte, vertebrae; M48.8X2 Other specified spondylopathies, cervical region; E11.621 Type 2 diabetes mellitus with foot ulcer; L97.502 Non-pressure chronic ulcer of other part of unspecified foot with fat layer exposed; E11.51 Type 2 diabetes mellitus with diabetic peripheral angiopathy without gangrene; L97.909 Non-pressure chronic ulcer of unspecified part of unspecified lower leg with unspecified severity; N28.9 Disorder of kidney and ureter, unspecified; I11.0 Hypertensive heart disease with heart failure; I50.32 Chronic diastolic (congestive) heart failure; I48.91 Unspecified atrial fibrillation; Z79.899 Other long term (current) drug therapy; Z91.81 History of falling; Z95.0 Presence of cardiac pacemaker
CPT/HCPCS: 93005; 87088; 87070; 85025 ×2; 80048 ×2; 36415 ×2; 83735 ×2; 87205; 84100; 85610; 82947 ×2; 80076; 85730; 84443; 87077 ×3; 87186 ×3; 83036; 82570; 82607; 82306; 82043; 70450; 72125; 71046; 93880; 76536; G0379; G0378 ×3; 81003; 81015; 87086

== ENCOUNTER 2020-07-07 11:20 | Inpatient (IN) | payer OTHER ==
[2020-07-03 12:46] LABS: Absolute Lymphocytes (CBC) 1.6 K/uL (0.7-4.9); Basophils % 0.1 % (0-1.3); Hematocrit 38.3 % (39.6-49.0); Lymphocytes % 12.1 % (15.3-44.8); RBC Red Blood Cell Count 4.29 M/uL (4.33-5.43)
[2020-07-03 12:55] LABS: Potassium 3.8 mmol/L (3.5-5.1)
[2020-07-03 13:03] LABS: Protime INR 1.05
--- NOTE | 2020-07-03 13:10 | RAD REPORT ---
EXAM DESCRIPTION: RAD - Chest Pa And Lat (2 Views) - 07/03/2020 12:58 pm CLINICAL HISTORY: preop Chest pain. COMPARISON: Chest Pa And Lat (2 Views) dated 08/06/2019; Chest Pa And Lat (2 Views) dated 04/12/2018; Chest Pa And Lat (2 Views) dated 08/04/2017; Chest Single View dated 08/04/2017 FINDINGS: Left lower lobe pulmonary infiltrate is seen which may represent pneumonia or aspiration. The heart is moderately enlarged with a multi lead pacer device present. No displaced fractures. Aort ic atherosclerosis.
[2020-07-07] MEDS ORDERED: CEFAZOLIN/SWI 2gm 2 GM/20 ML SYR ONE (11:44)
[2020-07-07] MEDS ORDERED: NA CHLORIDE 0.9% 1,000 ML ONE (11:44)
[2020-07-07] MEDS ORDERED: NS 0.9% VIAL 40 ML ONE (11:57)
[2020-07-07] MEDS ORDERED: HEPARIN 5000 UNIT/ML 1 ML VIAL ONE (11:57)
[2020-07-07] MEDS ORDERED: ONDANSETRON 4 MG/2 ML VIAL ONE (12:01)
[2020-07-07] MEDS ORDERED: dexAMETHasone 10 MG/ML VIAL ONE (12:04)
[2020-07-07] MEDS ORDERED: FENTANYL CITR 100 MCG/2 ML ONE (12:04)
[2020-07-07] MEDS ORDERED: ROCURONIUM 50 MG/5 ML VIAL IV ONE ×2 (12:04→14:28)
[2020-07-07] MEDS ORDERED: MIDAZOLAM HCL 2 MG/2 ML INJ ONE (12:04)
[2020-07-07] MEDS ORDERED: LIDOCAINE 1% MPF 5 ML VIAL ONE (12:04)
[2020-07-07] MEDS ORDERED: propofoL 200 MG/20 ML VIAL IV ONE (12:04)
--- NOTE | 2020-07-07 13:37 | RAD REPORT ---
EXAM DESCRIPTION: RAD - Fluoroscopy <1 Hour - 07/07/2020 1:30 pm FINDINGS: There were 9 portable C-arm views submitted from a fluoroscopic assisted placement of righ t-sided Port-A-Cath. No suspicious or unexpected finding. Fluoro time was 0.1 minutes. Cumulative dose was 1.58 mGy.
[2020-07-07] MEDS ORDERED: EPHEDRINE SULF 50 MG/ML VIAL ONE (14:37)
[2020-07-07] MEDS ORDERED: Ringers Lactate 1,000 ML IV ONE (14:54)
--- NOTE | 2020-07-07 14:55 | P.OP ---
Preoperative diagnosis: Esophageal Cancer, Dysphagia, Malnutrition Postoperative diagnosis: Esophageal Cancer, Dysphagia, Malnutrition Primary procedure: Placement of Chemotherapy port using flouroscopy, ultrasound, micro-set Secondary procedure: Laparoscopic adhesiolysis, Open Jejunostomy feeding tube Other procedure(s): Laparoscopic peritoeal washing Anesthesia: GETA Specimen: Peritoneal washing for cytology Findings: Significant intra-abdominal scarring, cirrhosis Complications: None Implants: 14Fr. Jejunostomy Tube Transferred to: Recovery Room Condition: Good
[2020-07-07] MEDS ORDERED: BUPIVACA 0.25%/EPI 0.0005% MDV 50 ML VIAL ONE (14:57)
[2020-07-07] MEDS ORDERED: NEOSTIGMINE 1 MG/ML -5 ML ONE (14:59)
[2020-07-07] MEDS ORDERED: ONDANSETRON 4 MG/2 ML VIAL IV PRN (14:59)
[2020-07-07] MEDS ORDERED: GLYCOPYRROLATE 0.2 MG/ML SYR ONE (14:59)
[2020-07-07] MEDS: Ringers Lactate 1,000 ML IV SCH (15:00)
[2020-07-07] MEDS ORDERED: NALOXONE 0.4 MG/ML VIAL ONE (15:38)
[2020-07-07 16:02] LABS: Arterial Blood Carboxyhemoglob 0.4 % (0-1.5); Blood Gas Oxyhemoglobin 91.5 % (94-97); Blood O2 Saturation 92.7 % (92-98.5)
[2020-07-07 16:28] LABS: Absolute Lymphocytes (CBC) 2.4 K/uL (0.7-4.9); Basophils % 0.2 % (0-1.3); Hematocrit 39.3 % (39.6-49.0); Lymphocytes % 16.9 % (15.3-44.8); MPV 9.1 fL (7.6-11.3); RBC Red Blood Cell Count 4.28 M/uL (4.33-5.43)
[2020-07-07] MEDS: INSULIN -REGULAR HUMAN 50 UNIT/0.5 ML ML SQ SCH ×2 (16:30→21:31)
--- NOTE | 2020-07-07 16:33 | RAD REPORT ---
EXAM DESCRIPTION: RAD - Chest Single View - 07/07/2020 4:08 pm CLINICAL HISTORY: S/P PORT A CATH AND ET TUBE PLACEMENT COMPARISON: Two view chest July 03, CT chest July 04 TECHNIQUE: AP portable chest image was obtained 07/07/2020 4:08 pm . FINDINGS: Endotracheal tube is in place. Tip is T4 level top of the aortic arch. This is well above the casandra. Right-sided Port-A-Cath is in place with the tip in the proximal to mid SVC. Pre-existing left subclavian pacemaker noted. Extensive left lung base interstitial and alveolar opacification are present. This matches the CT kush dy. Lung parenchymal opacification is accentuated by the low lung volumes. No new or progressive righ t lung field finding. Heart size is normal range. No abnormal vascular engorgement. No pneumothorax. IMPRESSION: ET tube in good position T4 level top of the aortic arch. Right-sided Port-A-Cath in place in good position. No pneumothorax. Extensive left lung base parenchymal opacification similar to the recent CT study.
[2020-07-07] MEDS: HYDROMORPHONE HCL 1 MG/ML INJ IV PRN (16:45)
[2020-07-07] MEDS ORDERED: HYDROMORPHONE HCL 1 MG/ML INJ ONE (16:53)
[2020-07-07] MEDS ORDERED: ACETAMINOPHEN 650MG/RECT SUPP PR ONE (17:00)
[2020-07-07] MEDS: CEFAZOLIN/SWI 1gm 1 GM/10 ML SYR ONE ×2 (17:44→17:56)
[2020-07-07] MEDS: CEFAZOLIN/SWI 1gm 1 GM/10 ML SYR IVP SCH ×2 (17:46→23:24)
--- NOTE | 2020-07-07 18:09 | OP ---
Date of Procedure: 07/07/2020 Surgeon: Narinder Mace MD, Preoperative Diagnoses: Esophageal cancer, dysphagia, and malnutrition. Postoperative Diagnoses: Esophageal cancer, dysphagia, and malnutrition. Procedures Performed: 1.Placement of chemotherapy port using fluoroscopy, ultrasound guidance, and microintroducer set in the right internal jugular position. 2.Laparoscopic exploration. 3.Laparoscopic peritoneal washings. 4.Open jejunostomy feeding tube. Anesthesia: General endotracheal. Specimen: Peritoneal washings for cytology. Findings: 1.Significant intraabdominal scarring, adhesions, and liver appearance consistent with moderate cirr hosis. 2.Port-A-Cath placement. Dark red, nonpulsatile blood returned and fluoroscopy confirmed position o f port in SVC. Implants: 1.Port-A-Cath. 2.A 14-Sinhala jejunostomy feeding tube. Disposition: The patient transferred to recovery room in good condition. Procedure In Detail: After informed consent was obtained, the patient was brought to the operating r oom, prepped and draped in the usual sterile fashion after adequate anesthesia achieved. He was plac ed in the steep Trendelenburg position. I used the ultrasound guidance at the right internal jugular vein to cannulate the right internal jugular vein on the first attempt under direct visualization us ing ultrasound guidance. At this point, a microwire was advanced. Fluoroscopy confirmed the positio n of the microwire in the superior vena cava. At this point, I made a small sonja incision over this insertion site and placed the microintroducer sheath into the jugular vein without any evidence of co mplication. Wire out was called at this point. Nonpulsatile blood was returned and the standard wir e was advanced and confirmed on fluoroscopic examination once again to be in the confluence of the SV C. At this point, I anesthetized the tract over the clavicle and made an incision over the chest wal l at this point. Removing a small amount of adipose tissue to the layer of the prepectoral fascia, I then advanced the tunneling device with the catheter through the tunneling tract up to the insertion site. At this point, I sized the catheter appropriately using fluoroscopy and clamped the end at th is point. At this point, I then placed the standard dilator into the jugular vein after removing the micro sheath using Seldinger technique over the wire. At this point, the catheter was advanced and using fluoroscopic guidance to place it at the SVC, I then confirmed the position. At this point, th en I attached the port itself and secured to the chest wall using interrupted 2-0 Prolene sutures and I then flushed it with heparinized saline and packed with super flush at this point. Position was o nce again confirmed using fluoroscopic guidance at this point. I then irrigated all skin incisions a nd closed the deep dermal layer of the skin using interrupted 3-0 Vicryl and closed the skin using 4- 0 Monocryl in a running fashion. I then closed the insertion site using an interrupted 3-0 nylon sut ure and a sterile dressing placed over top. The patient tolerated the procedure well without evidenc e of complication at this point. We then re-prepped and draped the patient for the abdominal portion of procedure. The patient was prepped and draped in the usual fashion after adequate anesthesia was achieved and the patient was positioned in the neutral position. I anesthetized an area of the epig astrium as the patient had a significant ventral abdominal hernia in the periumbilical position. Aft er appropriately anesthetizing the skin, I then used an optical trocar, which was through a 5 mm stab incision and introduced into the abdomen without any evidence of complication. Insufflation was obt ained to 15 mmHg at this time. There was no injury to vital structure upon entry into the abdomen. I inspected the abdomen at this point and found that there was no obvious peritoneal metastasis on vi sualization. I inspected the liver, which was found to have a moderate cirrhosis appearance and I tu rned my attention into the periumbilical hernia, which was found to be incarcerated with omentum. At this point, I placed 2 additional trocars, 1 in the epigastrium superior to the previously placed. This was a 5 mm trocar and was placed under direct visualization without any evidence of complication . The first trocar was then up-sized to a 12 mm under direct visualization without any evidence of c omplication. Additional trocar was placed to the right of midline inferior to the previous 2 trocars at this point and this was a 5 mm trocar also placed under direct visualization without any evidence of complication. Additional trocar was placed in the left upper quadrant to serve as a fourth troca r at this point. This was a 5 mm trocar. At this point, I performed an extensive adhesiolysis of th e omentum through the anterior abdominal wall hernia defect using the LigaSure device. After this wa s mobilized, I then performed peritoneal washings up in the area of the esophagus, gastroesophageal j unction near the angle of His. I irrigated the area in the perisplenic and perihepatic spaces. The patient was gently agitated and the effluent was suctioned out and sent off for pathologic examinatio n for cytology. At this point, I then continued to do adhesiolysis from scar tissue of the anterior abdominal wall, which was found to be quite firm and fibrous. This precluded easy manipulation of th e intestine as there was significant scar tissue. I did incise an area approximately 30 cm from the ligament of Treitz; however, due to the significant scar tissue, I opted to convert this to an open p rocedure for better visualization and manipulation of the bowel as there were significant adhesions, which precluded normal running of the bowel. At this point, I therefore opened the upper midline inc ision with a 10 blade down through subcutaneous tissues and under direct visualization entered the ab domen along the midline following the course of the previously 2 placed trocars in the midline. The remaining trocars were removed, which were 5 mm trocars and the abdomen was opened through an upper m idline incision. At this point, I reduced the omentum to the superior position, although there was s ome bleeding from the omentum. At this point, the LigaSure device was used to take a portion of this omentum out and removed off the back table as it continued to use throughout the procedure. Good he mostasis was achieved after removal with the LigaSure device. At this point, I turned my attention t o the small bowel. I ran the small bowel in its entirety at this point manually and finding of an ar ea approximately 30 cm from the ligament of Treitz, I demarcated this area for placement of a jejunos steffen tube. At this point, a small stab incision was made in the left upper quadrant and the jejunost adriana tube was brought through the abdominal wall. At this point, I then made a small burn at the anti mesenteric border of the small bowel using electrocautery. I then dilated this tract slightly with a hemostat. At this point, the tube was fed down including the balloon down into the distal small bow el after sizing the tube appropriately ensuring it was within the lumen. I then occluded the lumen a nd injected fluid, which was easily passed down and confirmed position at this point. I then placed a pursestring suture of 3-0 Vicryl at the insertion site and secured this. At this point, I then per formed a Witzel tube protection maneuver over the insertion site on the proximal aspect of the small bowel using 3-0 Vicryl sutures in an interrupted fashion. At this point, I then placed 3 interrupted sutures through the anterior abdominal wall and ultimately through the small bowel near the end of t he Witzel site to allow for good apposition to the anterior abdominal wall. These were secured and t he tube was found to be in good apposition to the abdominal wall. I then inflated approximately 3 cc of saline into the balloon and pulled it into apposition as well and secured this J-tube to the skin at this level. At this point, I also tied a collar suture around which was 0 nylon around the neck of the J-tube to ensure good apposition of the abdominal wall without too much tension and to preclud e the chance of necrosis due to too much distraction of the tube at the abdominal wall level. At thi s point, the abdomen was inspected, irrigated slightly and suctioned out. At this point, there was n o bleeding or additional hemostatic was required. The tube was found to be in good anatomic position and as such I opted to close the abdominal wall at this point. I closed the abdominal wall using a #1 looped PDS in a running fashion with good apposition of the tissues. I then irrigated the skin in cisions all and closed them with interrupted marce on the midline. The two 5 mm trocars were close d using interrupted 4-0 Monocryl in a running fashion. Dermabond was placed over top. The patient t olerated the procedure well without any evidence of complication, transferred to the PACU in good con dition. All counts were correct at the end of the case. TK/MODL Voice ID: [id number] Report ID: [id number]
[2020-07-07 19:46] VITALS: BMI 25.0
--- NOTE | 2020-07-07 20:36 | P.HP ---
Certification for Inpatient Patient admitted to: Observation Patient will require the following post-hospital care: None Practitioner: I am a practitioner with admitting privileges, knowledge of patient current condition, hospital course, and medical plan of care. Services: Services provided to patient in accordance with Admission requirements found in Title 42 Section 412.3 of the Code of Federal Regulations Patient History Date of Service: 07/08/20 Reason for admission: resp failure History of Present Illness: 79 y o male pt with hx of hypertension, hyperlipidemia, diabetes type 2 who had a port placement procedure done earlier today. he had issues with resp status post procedure and he was kept on mechanical ventilation for a while. his abg did show resp failure with hypercapnia and he was ventilated for this issue. he was subsequently extubated and he did well. he was asked to be observed overnight. Allergies No Known Allergies Allergy (Verified 04/12/18 17:20) Home Medications: Duloxetine HCl [Cymbalta] 60 mg PO DAILY 10/27/17 Furosemide [Lasix] 80 mg PO DAILY 10/27/17 glyBURIDE [Glyburide] 2 mg PO BID 10/27/17 Baclofen 10 mg PO BID 08/06/19 Hydrocodone/Acetaminophen [[place] 10-325 Tablet] 1 each PO TID PRN 08/06/19 Pravastatin Sodium 10 mg PO DAILY 08/06/19 Spironolactone 50 mg PO DAILY 08/06/19 Furosemide 20 mg PO DAILY #90 tablet 08/07/19 Hydralazine HCl 25 mg PO DAILY 07/03/20 Metoprolol Tartrate 1 tab PO BID 07/07/20 - Past Medical/Surgical History Has patient received pneumonia vaccine in the past: Yes Diabetic: Yes -: Diabetes mellitus type 2 -: Hypertension -: CHF, systolic dysfunction -: History pacemaker -: Hyperlipidemia -: Obesity -: Obstructive sleep apnea -: Benign prostate hyperplasia -: Chronic diabetic foot ulcers -: BPH -: Chronic pain -: Hernia repair -: sinus surgery -: right great toe partial amputation -: Appendectomy -: bilateral lens (cataract) -: Abdominal hernia repairs x3 -: Pacemaker -: Multiple foot surgeries bilaterally Psychosocial/ Personal History: He currently lives by himself. He is . He has multiple children. - Family History Father -: Heart disease Mother -: Stroke - Social History Smoking Status: Current every day smoker Alcohol use: No CD- Drugs: No Caffeine use: Yes Review of Systems Unremarkable Physical Examination - Vital Signs Temperature: 98.0 F Blood Pressure: 149/58 Pulse: 60 Respirations: 16 - Physical Exam General: Alert, In no apparent distress, Oriented x3 HEENT: Atraumatic, Normocephalic Neck: Supple Respiratory: Clear to auscultation bilaterally Cardiovascular: No edema, Regular rate/rhythm, Normal S1 S2 Gastrointestinal: Normal bowel sounds Neurological: Normal speech, Normal strength at 5/5 x4 extr, Cranial nerves 3-12 intact - Studies Laboratory Data (last 24 hrs) 07/07/20 16:07: WBC 14.50 H, Hgb 12.6 L, Hct 39.3 L, Plt Count 260 D Assessment and Plan - Plan 1.s/p port insertion in chest-no significant issues as per procedure. we will observe closely. 2.Diabetes type 2-we will continue carb restricted diet and oral hypoglycemic drugs. 3.Hypertension-we will monitor vitals per unit protocol and continue antihypertensive meds. 4.Resp failure with hypercapnia-resolved. we will monitor his resp status closely. - Advance Directives Does patient have a Living Will: No Does patient have a Durable POA for Healthcare: No
[2020-07-07 21:32] LABS: Arterial Blood Carboxyhemoglob 1.3 % (0-1.5); Blood Gas Oxyhemoglobin 92.8 % (94-97)
[2020-07-08] MEDS: Ringers Lactate 1,000 ML IV SCH ×2 (01:00→11:00)
[2020-07-08] MEDS: HYDROMORPHONE HCL 1 MG/ML INJ IV PRN ×4 (02:51→21:12)
[2020-07-08] MEDS: CEFAZOLIN/SWI 1gm 1 GM/10 ML SYR IVP SCH ×2 (05:20→12:00)
[2020-07-08] MEDS ORDERED: HYDROCODONE/APAP 10/325 TAB PO PRN (05:22)
[2020-07-08 05:43] LABS: Absolute Lymphocytes (CBC) 1.1 K/uL (0.7-4.9); Hematocrit 35.3 % (39.6-49.0); Lymphocytes % 6.2 % (15.3-44.8); MPV 8.7 fL (7.6-11.3); RBC Red Blood Cell Count 3.94 M/uL (4.33-5.43)
[2020-07-08 05:56] LABS: Potassium 4.4 mmol/L (3.5-5.1)
[2020-07-08] MEDS: INSULIN -REGULAR HUMAN 50 UNIT/0.5 ML ML SQ SCH ×4 (07:30→20:56)
[2020-07-08] MEDS ORDERED: GLYBURIDE 5 MG PO SCH (09:00)
[2020-07-08] MEDS ORDERED: FUROSEMIDE 40 MG TABLET PO SCH (09:00)
[2020-07-08 09:08] LABS: Blood Morphology Comment NOT SEEN (NOT SEEN); Platelet Estimate ADEQ; White Blood Cell Scan 0 (OK)
[2020-07-08] MEDS: HYDRALAZINE HCL 25 MG TABLET PO SCH (09:43)
[2020-07-08] MEDS: DULOXETINE 30 MG CAP PO SCH (09:43)
[2020-07-08] MEDS: BACLOFEN 10 MG TAB PO SCH ×2 (09:44→20:57)
[2020-07-08] MEDS: ATORVASTATIN 10 MG TAB PO SCH (09:44)
[2020-07-08] MEDS: METOPROLOL TAR 25 MG TAB PO SCH ×2 (09:44→20:57)
[2020-07-08] MEDS: SPIRONOLACTONE 25 MG TABLET PO SCH (09:45)
[2020-07-08] MEDS: FUROSEMIDE 20 MG TABLET PO SCH (09:45)
[2020-07-08] MEDS: ENOXAPARIN 30 MG/0.3 ML SQ SCH (09:45)
[2020-07-08] MEDS ORDERED: VITAL AF 1,000 ML BOT RTH SCH (13:00)
[2020-07-08] MEDS: PIPER/TAZO/NS 3.375gm 3.375 GM/100 ML BAG IVPB SCH (17:05)
--- NOTE | 2020-07-08 17:05 | P.HP ---
Certification for Inpatient Patient admitted to: Inpatient With expected LOS: >2 Midnights Practitioner: I am a practitioner with admitting privileges, knowledge of patient current condition, hospital course, and medical plan of care. Services: Services provided to patient in accordance with Admission requirements found in Title 42 Section 412.3 of the Code of Federal Regulations Patient History Date of Service: 07/08/20 Reason for admission: resp failure History of Present Illness: DYSPNEA. MR. SIMONS IS A PATIENT WITH ESOPHAGEAL CANCER WHO NEEDS PORT PLACEMENT FOR CHEMOTHERAPY, HAD DYSPNEA AFTER ANESTHESIA, ON CT SCAN HE SHOWS LOWER LOBE PNEUMONIA. INITIALLY THEY CALLED IN WRONG DOCTORS NOT KNOWING HE IS MY PATIENT. I CHANGED ABX TO ZOSYN HIS WBC COUNT IS HIGHER. Allergies No Known Allergies Allergy (Verified 04/12/18 17:20) Home Medications: Duloxetine HCl [Cymbalta] 60 mg PO DAILY 10/27/17 Baclofen 10 mg PO BID 08/06/19 Hydrocodone/Acetaminophen [[place] 10-325 Tablet] 1 each PO TID PRN 08/06/19 Pravastatin Sodium 10 mg PO DAILY 08/06/19 Spironolactone 50 mg PO DAILY 08/06/19 Furosemide 20 mg PO DAILY #90 tablet 08/07/19 Hydralazine HCl 25 mg PO DAILY 07/03/20 Metoprolol Tartrate 1 tab PO BID 07/07/20 Semaglutide [Ozempic] 0.25 mg SQ Q7D 07/08/20 - Past Medical/Surgical History Has patient received pneumonia vaccine in the past: Yes Diabetic: Yes -: Diabetes mellitus type 2 -: Hypertension -: CHF, systolic dysfunction -: History pacemaker -: Hyperlipidemia -: Obesity -: Obstructive sleep apnea -: Benign prostate hyperplasia -: Chronic diabetic foot ulcers -: BPH -: Chronic pain -: Hernia repair -: sinus surgery -: right great toe partial amputation -: Appendectomy -: bilateral lens (cataract) -: Abdominal hernia repairs x3 -: Pacemaker -: Multiple foot surgeries bilaterally Psychosocial/ Personal History: He currently lives by himself. He is . He has multiple children. - Family History Father -: Heart disease Mother -: Stroke - Social History Smoking Status: Current every day smoker Alcohol use: No CD- Drugs: No Caffeine use: Yes Review of Systems 10-point ROS is otherwise unremarkable General: Weakness Physical Examination - Vital Signs Temperature: 97.5 F Blood Pressure: 165/78 Pulse: 66 Respirations: 20 Pulse Ox (%): 96 - Physical Exam General: Mild distress, Obese HEENT: Atraumatic, PERRLA, Mucous membr. moist/pink, EOMI, Sclerae nonicteric Neck: Supple, 2+ carotid pulse no bruit, No LAD, Without JVD or thyroid abnormality Respiratory: Clear to auscultation bilaterally, Normal air movement Cardiovascular: Regular rate/rhythm, Normal S1 S2 Gastrointestinal: Normal bowel sounds, No tenderness Musculoskeletal: No tenderness Integumentary: No rashes Neurological: Normal gait, Normal speech, Normal strength at 5/5 x4 extr, Normal tone, Normal affect Lymphatics: No axilla or inguinal lymphadenopathy - Studies Laboratory Data (last 24 hrs) 07/08/20 05:20: Sodium 140, Potassium 4.4, BUN 24 H, Creatinine 1.30, Glucose 207 H 07/08/20 05:20: WBC 17.30 H D, Hgb 11.5 L, Hct 35.3 L, Plt Count 236 Assessment and Plan - Problems (Diagnosis) (1) Aspiration pneumonia Current Visit: Yes Status: Acute Plan: IV ZOSYN ESOPHAGEAL CANCER PATIENTS CAN ASPIRATE. HE WILL FU WITH ONCOLOGIST. (2) Esophageal cancer Current Visit: Yes Status: Acute Plan: PROGNOSIS IS GUARDED HE HAS MANY OTHER ISSUES. (3) Diabetes mellitus Onset Date: 08/04/17 Current Visit: No Status: Chronic Qualifiers: Diabetes mellitus type: type 2 Diabetes mellitus complication status: with skin complications Diabetes mellitus complication detail: with foot ulcer - Advance Directives Does patient have a Living Will: No Does patient have a Durable POA for Healthcare: No
[2020-07-08] MEDS ORDERED: Ringers Lactate 1,000 ML IV SCH (20:38)
--- OUTSIDE RECORDS SUMMARY | 2020-07-08 21:52 | XMS REPORT | Continuity of Care Document ---
:1940 Author Organization [facility] Care Team Providers Name Role Phone [facility] Unavailable Un available Problems Problem Status Onset Classification Date Comments Sourc e Date Reported N/A Active 12/05/19 [facility] ACUTE Active 12/05/19 [facility] OSTEOMYELITIS [facility] [place] LEFT FOOT M86.9 - Active 04/19/20 MH [facility] "OSTEOMYELITIS, [address] [place] UNSPECIFIED" Atrial Resolved Problem 12/07/2018 MH fibrillation [facility] (disorder) Congestive heart Active Problem 12/07/2018 MH failure [facility] (disorder) Diabetes Active Problem 12/07/2018 MH mellitus [facility] (disorder) Hypertensive Resolved Problem 12/07/2018 disorder, [facility] systemic arterial (disorder) Medications Medication Details Route Status Patient Ordering Order Source Instructions Provider Date fentaNYL Route: IV, Inactive (ANES) Drug form: 019 [facility] INJ, ONCE, Stop date: 12/05/18 17:22:00 CDT lidocaine Route: IV, Inactive (ANES) Drug form: 019 [facility] INJ, ONCE, Stop date: 12/05/18 16:36:00 CDT propofol Route: IV, Inactive (ANES) Drug form: 019 [facility] INJ, ONCE, Stop date: 12/05/18 16:36:00 CDT midazolam Route: IV, Inactive (ANES) Drug form: 019 [facility] SOLN, ONCE, Stop date: 12/05/18 16:21:00 CDT Lactated Route: IV, Inactive Ringers Total 019 [facility] Injection IV Volume: (ANES) 1000 1,000, mL Start date: 12/05/18 15:35:00 CDT, Stop date: 12/05/18 16:35:00 CDT Calcium 1,000 mL, No Longer Chloride Rate: 25 Active 019 [place] 0.0014 MEQ/ML ml/hr, / Potassium Infuse Chloride over: 40 0.004 MEQ/ML hr, Route: / Sodium IV, Total Chloride Volume: 0.103 MEQ/ML 1,000, / Sodium Start Lactate 0.028 date: MEQ/ML 12/05/18 Injectable 14:18:00 Solution CDT, Duration: 30 day, Stop date: 01/04/19 14:17:00 CDT, 0 Allergies, Adverse Reactions, Alerts No Known Medication Allergies Immunizations No Data Provided for This Section Results Order Results Value Reference Date Interpretation Comments Source Name Range Culture: No Anaerobic Anaerobes 2018 [place] Isolated After 2 Days Gram Stain No Wbc'S Or Report Organisms 2019 [place] Seen Culture: 48 Hour Aspirate/Bod Report - No [address] y Growth, Fluid/Tissue Holding Pathology Reports No Data Provided for This Section Diagnostic Reports Report Value Date Source Foot wo contrast CT CT LEFT FOOT WITHOUT CONTRAS T WITH SAGITTAL AND CORONAL REFORMATTED IMAGES AND 3-D RECONSTRUCTIONS 09/21/2016 [facility] [place] HISTORY: ; chronic ulcer lt planter 2nd met head ct dose tvc187.49; chronic ulcer plantar to the 2nd metatarsal head, evaluate for osteomyelitis, history of 2nd toe arthroplasty and 2nd metatarsal osteotomy COMPARISON: Left toe radiography dated 6 FINDINGS: Ulcer plantar to the 2nd met atarsal head measures approximately 9 x 6 mm in area and 3 mm in depth. There is induration of the subjacent soft tissues compatible with inflammation. No definite soft tissue flui d collection on this limited noncontrast CT examination. No soft tissue gas or radiopaque foreign body. There is chronic superior hassan bluxation of the proximal phalanx of the 2nd toe with bulky dorsal osteophytosis of the 2nd metatarsal head. Postoperative changes are noted at the PIP joint of the 2nd toe. No aggressive acute-appearin g osseous erosions are seen to suggest CT evidence of osteomyelitis. Changes of prior resection o f the 1st metatarsal head are again noted with postoperative hypertrophic spurring. 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 No aggressive osseous ero claire is seen within the foot to suggest CT evide nce of osteomyelitis. IMPRESSION: 1. Soft tissue ulcer plantar to the 2nd metatarsal head with associated inflammatory soft tissue induration. 2. No definite abscess on this limited noncontra st CT examination. 3. No aggressive acute-appea ring osseous erosion is seen at the 2nd MTP joint or elsewhere in the foot to suggest CT evidence of active osteomyelitis. 4. Postoperative and promine nt degenerative changes of the 1st, 2nd, and 3rd toes. SL: [id number] Toe DX REASON FOR EXAM: M86.9. 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 Rule out osteomyelitis. COMPARISON: None. FINDINGS: AP and lateral vie ws of the 2nd digit of the left foot were performed. 2 images are submitted. There are postsurgical mckeon es of an arthroplasty involving the head and neck of the proximal phalanx of the 2nd digit with a residual bony fragment at the head measuring approximately 10 x 3 mm, defect at the neck and mild segmen yina periosteal thickening of the shaft of the proximal phalanx. There is no demonstrable cortical disruption to suggest an acute osteomyelitis. There is narrowing of the 2n d metatarsal phalangeal joint. There is a small bony spur involving the medial base of proximal phalanx of the 1st digit. There is mild chronic-appearing flattening of the he ad of the 3rd metatarsal. Th ere is no demonstrable soft tissue gas or radiopaque foreign body. IMPRESSION: 1. Postsurgical changes of t he proximal phalanx of the 2nd digit and osteoarthritic changes of the visualized left forefoot as described above. 2. There is no finding to hassan ggest an acute osteomyelitis. If indicated further evaluation may be obtained with magnetic resonance imaging. SL: 15 Consultation Notes No Data Provided for This Section Discharge Summaries No Data Provided for This Section History and Physicals No Data Provided for This Section Vital Signs Vital Sign Value Date Comments Source Systolic (mm Hg) 120 12/06/2018 [facility] t Diastolic (mm Hg) 48 12/06/2018 [facility] Respitory Rate 17 12/06/2018 [facility] Systolic (mm Hg) 120 12/06/2018 [facility] t Diastolic (mm Hg) 48 12/06/2018 [facility] Respitory Rate 15 12/06/2018 [facility] Systolic (mm Hg) 108 12/06/2018 [facility] t Diastolic (mm Hg) 57 12/06/2018 [facility] Respitory Rate 17 12/06/2018 [facility] Heart Rate 73 12/05/2018 [facility] Temperature Oral (F) 98.5 F 12/05/2018 [facility] Encounters Location Location Encounter Encounter Reason Attending ADM DC Stat us Source Details Type Number For Provider Date Date Visit [facility] Outpt Diag [id number] Ra 04/19 04/20 [facility] [place] [facility] Outpt Diag [id number] Ra 09/21 09/22 [facility] [place] [facility] [place] [id number] Bab[place] 12/05 12/06 [facility] Procedures Procedure Code Date Perfomer Comments Source Amputation [place] [id number] [facility] right great toe Cardiac [id number] [facility] pacemaker procedure Assessment and Plan No Data Provided for This Section Plan of Care No Data Provided for This Section Social History Social History Date Source No data available for this 12/06/2018 [facility] section No data available for this 09/22/2016 PRUDENCIO Fumni and section Family History No Data Provided for This Section Advance Directives No Data Provided for This Section Functional Status No Data Provided for This Section
--- OUTSIDE RECORDS SUMMARY | 2020-07-08 21:52 | XMS REPORT | Clinical Summary ---
:1940 Author Organization [facility] Address [address] [place] [address] Care Team Providers Name Role Phone Asked, No Pcp Primary Care Provider Unavailable Allergies No Known Active Allergies Medications Medication Sig Dispensed Refills Start [...] apnea) 02/03/2016 Heart block AV complete 02/02/2016 Surgical History Surgery Date Site/Laterality Comments HERNIA REPAIR SINUS SURGERY FOOT SURGERY BACK SURGERY APPENDECTOMY EYE SURGERY CARDIAC ELECTROPHYSIOLOGY 02/04/2016 Left Proced ure: Ep ppi implant PROCEDURE insertion bi khushboo t av seq; Surgeon: Juan Carlos chavez Jr., MD; [facility]; Service: Cardiov ascular; Laterality: Left ; Medical devices from this surgery are in t he Implants section . Medical History Medical History Date Comments Hypertension Diabetes mellitus type I (HCC) GERD (gastroesophageal reflux disease) CAD (coronary artery disease) BPH (benign prostatic hypertrophy) GALDINO treated with BiPAP Family History Medical History Relation Name Comments Stroke Father Heart disease Mother Relation Name Status Comments Father Mother Social History Tobacco Use Types Packs/Day Years Used Date Former Smoker Alcohol Use Drinks/Week oz/Week Comments No Sex Assigned at Date Recorded Not on file Last Filed Vital Signs Not on file Plan of Treatment Health Maintenance Due Date Last Done Comments COVID-19 VACCINE (1 of 2) 1956 SHINGLES VACCINES (#1) 1992 65+ PNEUMOCOCCAL VACCINE (1 of 1 - PPSV23) 2007 INFLUENZA VACCINE 12/29/2019 Implants Implanted Type Area Cylinder Block Mechanic Device Shelf Model / Identifier Expiration Serial / Date Lot Valve, 6248val, Adjustable, Us Mkt, En - [id number] Cardiac Pacing N/A: [employer] CRM 08/27/2016 [id number] / Implanted: 02/04/2016 at [facility] (Quantity not on file) Alba ds or N/A [employer] / Electrodes or [id number] Accessories Lead, Pacemaker Bipolar Fix Forming Atri al And Ventricular Steroid Eluting 52 Centimeter Capsure Fix Novus - [id number] Cardiac Pacing N/A: [employer] CR M 10/08/2017 5076 52 / Implanted: 02/04/2016 at [facility] (Quantity not on file) Alba ds or N/[employer] [id number] / Electrodes or [id number] Accessories Lead 5076-65 Lead-Bipolar Elisa Screw-In - Lead - [id number] Cardiac Pacing N/A: [employer] [facility] 03/27/2016 5076 65 / Implanted: 02/04/2016 at [facility] (Quantity not on file) Alba ds or N/A [employer] [id number] / Electrodes or [id number] Accessories 88cm Attain Ability Otw Lead, Model 4196 , Dual-Electrode Left Ventricular - [id number] Cardiac Pacing N/A: [employer] CRM 07/30/2016 4196 88 / Implanted: 02/04/2016 at [facility] (Quantity not on file) Alba ds or N/[employer] [id number] / Electrodes or [id number] Accessories Safesheath2 - [id number] IPM SUPPLIES N/A: [employer] CRM SS9 / Implanted: 02/04/2016 at [facility] (Quantity not on file) PAT IENT N/A [employer] / BILLABLE Safesheath2 - [id number] IPM SUPPLIES N/A: [employer] CRM SS7 / Implanted: 02/04/2016 at [facility] (Quantity not on file) PAT IENT N/A [employer] / BILLABLE Safesheath2 - [id number] IPM SUPPLIES N/A: [employer] CRM SS7 / Implanted: 02/04/2016 at [facility] (Quantity not on file) PAT IENT N/A [employer] / BILLABLE Lens Lens Reina [id number] Medtronic Heater Operator System - [id number] - [id number] Medica l N/A: [employer] 07/27/2016 CATR 01 / Implanted: Qty: 1 on 02/04/2016 by Juan Carlos Jerome Jr., M D at [facility] Science & N/A [id number] / Research [id number] Results Not on fileafter 07/08/2019 Insurance Payer Benefit Plan / Subscriber ID Effective Phone Address T ype Group Dates MEDICARE MEDICARE PART [id number] 2007-Deya DIXON, T X Medicare A AND B nt MEDICARE MEDICARE PART [id number] 2016-Deya DIXON, T X Medicare A AND B nt MUTUAL OF MUTUAL OF [id number] 2016-Deya ordoñez Advance Directives For more information, please contact: [phone] Type Date Recorded 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
--- OUTSIDE RECORDS SUMMARY | 2020-07-08 21:53 | XMS REPORT | Continuity of Care Document ---
:1940 Author Organization [facility] t Address [address] [place] [address] Care Team Providers Name Role Phone PAM GARDUNO LEANDRO Primary Care Physician Unavailable Surinder CORREA C Attending Clinician Only, Test Attending Clinician Unavailable Mike CORREA Attending Clinician Judd Mejia Attending Clinician Antoinette ALCAZAR Attending Clinician Unavailable Antoinette Yanez Attending Clinician Mignon Cadena MD Admitting Clinician Judd Mejia Admitting Clinician Antoinette ALCAZAR Admitting Clinician Unavailable Payers Payer Name Policy Type Policy Number Effective Date Expiration Date S ource Problems Condition Condition Condition Status Onset Resolution Last Treating Co mments Source Name Details Category Date Date Treatment Clinician Date ACUTE Diagnosis Active 2019-01-24 Mem oria OSTEOMYELI 12-04 15:13:00 l TIS LEFT ACUTE 00:00: [place] FOOT OSTEOMYELI 00 TIS LEFT FOOT Active 12/04/2018 [facility] N/A Diagnosis Active 2018-12-05 Mem oria 12-04 14:31:00 l N/A 00:00: [place] 00 Active 12/04/2018 [facility] M86.9 - Diagnosis Active 2015-052016-04-19 Me moria "OSTEOMYEL 06-19 14:51:00 l ITHARSHA, M86.9 - 00:01: Reji UNSPECIFIE "OSTEOMYEL 00 D" ITIS, UNSPECIFIE D" Active 6 PRUDENCIO [place] Open wound Open wound Disease Active [place] of left of left 02-02 Methodi foot foot 00:00: st 00 GALDINO GALDINO Disease Active [place] (obstructi (obstructi 02-02 Me thodi ve sleep ve sleep 00:00: st apnea) apnea) 00 Essential Essential Disease Active Tracie ston hypertensi hypertensi 02-02 Me thodi on, benign on, benign 00:00: st 00 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 [place] unspecifie unspecifie 02-02 Me thodi d type d type 00:00: st diabetes diabetes 00 mellitus mellitus without without mention of mention of complicati complicati on, on, uncontroll uncontroll ed ed 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 AV 02-01 Method i complete complete 00:00: st 00 Congestive Problem Active 2018-12-07 emoria heart 22:44:03 l failure [place] (disorder) Congestive heart failure (disorder) Active Problem 12/07/2018 [facility] Diabetes Problem Active 2018-12-07 Mem oria mellitus 22:44:03 l (disorder) Diabetes He rmann mellitus (disorder) Active Problem 12/07/2018 [facility] Atrial Problem Resolve 2018-12-07 [place] omar fibrillati d 22:44:03 l on Atrial [place] (disorder) fibrillati on (disorder) Resolved Problem 12/07/2018 [facility] Hypertensi Problem Resolve 2018-12-07 Memoria ve d 22:44:03 l disorder, Reji systemic Hypertensi arterial ve (disorder) disorder, systemic arterial (disorder) Resolved Problem 12/07/2018 [facility] Allergies, Adverse Reactions, Alerts Allergy Allergy Status Severity Reaction(s) Onset Inactive Treating Comm ents Source Name Type Date Date Clinician No Known DA Active U [facility]ie 9[facility]16 [place] [facility] d [facility] No Known DA Active U [facility] Drug 3-14 [place] Allergie 00:00: d s 00 [facility] Family History Family Member Diagnosis Comments Start Date Stop Date Source Natural father Stroke [facility] Natural mother Heart disease [facility] Social History Social Habit Start Date Stop Date Quantity Comments Source Sex Assigned At [facility] ethodist Social History 2018-12-06 2018-12-06 [facility] 01:38:00 01:38:00 Alcohol intake 2016-03-02 2016-03-02 Current [facility] 00:00:00 00:00:00 non-drinker of alcohol (finding) Smoking Status Start Date Stop Date Source Former smoker 2016-03-02 00:00:00 2016-03-02 00:00:00 [place] [facility] Medications Ordered Filled Start Stop Current Ordering Indication Dosage Frequency Signature Comments Components Source Medication Medication Date Date Medication? Clinician (SIG) Name Name fentaNYL No Route: IV, Mem oria (ANES) 12-05 Drug form: l 22:22: INJ, ONCE, [place] Stop date: 12/05/18 17:22:00 CDT lidocaine 2018- No Route: IV, Me moria (ANES) 12-05 Drug form: l 21:36: INJ, ONCE, Reji Stop date: 12/05/18 16:36:00 CDT propofol 2018-0 No Route: IV, Mem oria (ANES) 12-05 Drug form: l 21:36: INJ, ONCE, [place] Stop date: 12/05/18 16:36:00 CDT midazolam 2018- No Route: IV, Me moria (ANES) 12-05 Drug form: l 21:21: SOLN, Reji 00 ONCE, Stop date: 12/05/18 16:21:00 CDT Lactated 2019-0 No Route: IV, Mem oria Ringers 12-05 Total l Injection 20:35: Volume: Smiley nn IV (ANES) 00 1,000, 1000 mL Start date: 12/05/18 15:35:00 CDT, Stop date: 12/05/18 16:35:00 CDT Calcium 2019-0 No 1,000 mL, Memor ia Chloride 12-05 Rate: 25 l 0.0014 19:18: ml/hr, [place] MEQ/ML / 00 Infuse Potassium over: 40 Chloride hr, Route: 0.004 IV, Total MEQ/ML / Volume: Sodium 1,000, Chloride Start 0.103 date: MEQ/ML / 12/05/18 Sodium 14:18:00 Lactate CDT, 0.028 Duration: MEQ/ML 30 day, Injectable Stop date: Solution 01/04/19 14:17:00 CDT, 0 metFORMIN 2016- Yes 1000mg Q.5D Take 1,000 [place] (GLUCOPHAGE 9-08 mg by Methodi ) 1000 MG 10:32: mouth 2 st tablet 56 (two) times a day with meals. Vital Signs Vital Name Observation Time Observation Value Comments Source Systolic (mm Hg) 2018-12-06 00:30:00 Scout rial Reji Diastolic (mm Hg) 2018-12-06 00:30:00 Mem orial [place] Respitory Rate 2018-12-06 00:30:00 Memori al [place] Systolic (mm Hg) 2018-12-06 00:15:00 Scout rial Reji Diastolic (mm Hg) 2018-12-06 00:15:00 Mem orial Reji Respitory Rate 2018-12-06 00:15:00 Memori al Reji Systolic (mm Hg) 2018-12-06 00:00:00 Scout rial [place] Diastolic (mm Hg) 2018-12-06 00:00:00 Mem orial Reji Respitory Rate 2018-12-06 00:00:00 Memori al Reji Heart Rate 2018-12-05 19:00:00 [facility] Temperature Oral (F) 2018-12-05 19:00:00 98.5 F [facility] Procedures Procedure Date / Time Performed Performing Clinician [facility] e Amputation of right great Memori al Reji toe Cardiac pacemaker [facility] procedure Plan of Care Planned Activity Planned Date Details Comments Source Future Scheduled 2019-12-29 INFLUENZA VACCINE [place] [facility] 00:00:00 [code = INFLUENZA VACCINE] Future Scheduled 2007 65+ PNEUMOCOCCAL [place] [facility] 00:00:00 VACCINE (1 of 1 - PPSV23) [code = 65+ PNEUMOCOCCAL VACCINE (1 of 1 - PPSV23)] Future Scheduled 1992 SHINGLES VACCINES (#1) [place] [facility] 00:00:00 [code = SHINGLES VACCINES (#1)] Future Scheduled 1958 COVID-19 VACCINE (1 of [place] [facility] 00:00:00 2) [code = COVID-19 VACCINE (1 of 2)] Encounters Start End Encounter Admission Attending Care Care Encounter Source Date/Time Date/Time Type Type Clinicians Facility Department ID 2020-06-18 2020-06-18 [facility] [id number] 07:43:00 10:12:00 Encounter Merlin guerrero 350.1.13.10 [place] 4.2.7.2.686 Surgical [id number] [place] 071 2020-06-17 2020-06-17 Laboratory Only, [facility] [id number] 13:07:25 13:22:25 Only Test Kirk 350.1.13.10 [place] 4.2.7.2.686 [place] [id number] [facility] 2020-06-13 2020-06-13 Telephone Mike [facility] [id number] 00:00:00 00:00:00 Bo Bradley 350.1.13.10 [place] 4.2.7.2.686 Professio [id number] counts include 234 beds at the [facility] 2020-06-03 2020-06-03 Office Mike [facility] [id number] 13:47:02 14:52:08 Visit Bo Bradley 350.1.13.10 [place] 4.2.7.2.686 Professio [id number] nal [address] [place] [address] 2018-12-05 2018-12-05 Outpatient [place], [facility] [id number] 13:39:00 20:38:00 Babry Whaley 2018-12-05 2018-12-05 Outpatient [facility] 7500 [facility] 13:39:00 13:39:00 2017-01-28 2017-01-28 Outpatient [facility] [id number] [facility] 00:01:00 00:01:00 2016-12-28 2016-12-28 Outpatient [facility] [id number] [facility] 00:01:00 00:01:00 2016-11-27 2016-11-27 Outpatient [facility] [id number] [facility] 00:01:00 00:01:00 2016-10-28 2016-10-28 Outpatient [facility] [id number] [facility] 00:01:00 00:01:00 2016-09-21 2016-09-21 Outpatient Renata [facility] [id number] 11:38:00 23:59:00 Ra 2016-04-19 2016-04-19 Outpatient Geraldokaylincarla [facility] [id number] 14:40:00 23:59:00 [facility] Results Test Description Test Time Test Comments Results Result Comments Source TROPONIN-I 2020-04-16 11:30:00 Test Item Value Reference Range Interpretation Comme nts TROPONIN-I (test code = 0.067 NG/ML 0.000-0.045 HH Nega tive: </= 0.045 Positive: TROPI) >/= 0.046 Corre lation with serial results, other cardiac markers, and cl inical findings is necessary to determine the clinical signi ficance of this result. Quantit ative results using different methodologies should not be c ompared to one another as nume rical results may varyby meth od. Completed by Nursing: NOBASIC METABOLIC [id number] 10:43:00 Test Item Value Reference Range Interpretation Comments SODIUM (test code = NA) 136 mmol/L 134-147 N POTASSIUM (test code = K) 4.5 mmol/L 3.4-5.0 N CHLORIDE (test code = CL) 104 mmol/L 100-108 N CARBON DIOXIDE (test code = CO2) 26 mmol/L 21-32 N ANION GAP (test code = GAP) 6.0 GAP calc 4.0-15.0 N GLUCOSE (test code = GLU) 137 MG/DL 70-110 H BLOOD UREA NITROGEN (test code = 39 MG/DL 7-18 H BUN) GLOMERULAR FILTRATION RATE (test 48 estGFR >60 L code = GFR) CREATININE (test code = CREAT) 1.5 MG/DL 0.8-1.3 H CALCIUM (test code = CA) 9.7 MG/DL 8.5-10.1 N Completed by Nursing: NOCREATINE KINASE (CK)2020-04-16 10:43:00 Test Item Value Reference Range Interpretation Comments CREATINE KINASE (CK) (test code = 120 Unit/L 26-192 N CK) Completed by Nursing: [id number] 10:43:00 Test Item Value Reference Range Interpretation Comments TROPONIN-I (test 0.062 NG/ML 0.000-0.045 HH Negative: < /= 0.045 code = TROPI) Positive: >/= 0.046 Correlation wit h serial results, other cardiac markers, and cl inical findings is nec essary to determine the c linical significance of this result. Quantit ative results using d ifferent methodologies s hould not be compared to one another as nume rical results may trino yby method. Completed by Nursing: NOBASIC METABOLIC [id number] 10:30:00 Test Item Value Reference Range Interpretation Comments SODIUM (test code = NA) 136 mmol/L 134-147 N POTASSIUM (test code = K) 4.5 mmol/L 3.4-5.0 N CHLORIDE (test code = CL) 104 mmol/L 100-108 N CARBON DIOXIDE (test code = CO2) 26 mmol/L 21-32 N ANION GAP (test code = GAP) 6.0 GAP calc 4.0-15.0 N GLUCOSE (test code = GLU) 137 MG/DL 70-110 H BLOOD UREA NITROGEN (test code = 39 MG/DL 7-18 H BUN) GLOMERULAR FILTRATION RATE (test estGFR >60 code = GFR) CREATININE (test code = CREAT) MG/DL 0.8-1.3 CALCIUM (test code = CA) 9.7 MG/DL 8.5-10.1 N Completed by Nursing: NOCREATINE KINASE (CK)2020-04-16 10:30:00 Test Item Value Reference Range Interpretation Comments CREATINE KINASE (CK) (test code = CK) Unit/L 26-192 Completed by Nursing: [id number] 10:30:00 Test Item Value Reference Range Interpretation Comments TROPONIN-I (test code = TROPI) NG/ML 0.000-0.045 Completed by Nursing: NOGLUCOSE BEDSIDE [id number] 10:26:00 Test Item Value Reference Range Interpretation Comments GLUCOSE BEDSIDE TESTING (test code 154 mg/dL 70-110 H = GLUBED) - XR CHEST 1 [id number] 10:24:00 [facility] : 1940 Sex: M Name: LORELEI SIMONS [facility] : 1940 Age/S: 79 / M [address] Unit #: [id number] Loc: [place] [address] Phys: Mj Kerr MD Acct: [id number] Dis Date: Status: REG ER PHONE #: [phone] Exam Date: 04/16/2020 1012 FAX #: Reason: chest pain EXAMS: CPT: [id number] XR CHEST 1 V 82560 Fluoro Time: DAP (Gy m2): Air Kerma (mGy): EXAM: - XR CHEST 1 V Location code:C3 HISTORY: chest pain COMPARISON: 04/19/2016 FINDINGS: Single AP view of the chest is provided. Left chest wall cardiac pacemaker is unchanged. Cardiomegaly with vascular congestion is present. Patchy left basilar opacity with blunting left CP angle is seen. There is a nodular opacity in the right midlung zone with possible internal calcification incompletely characterized measuring approximately3 x 2 cm in size. There is no pneumothorax. IMPRESSION: 1. Features of CHF/volume overload with small left effusion. 2. Nodular opacity in the right upper lung zone with suggestion of potential calcifications incompletely characterized measuring 3 x 2 cm in size. Consider chest CT. at 1024 Reported andsigned by: Matt Shin MD CC: Mj Kerr MD PAGE 1 Signed Report Name: LORELEI SIMONS [facility] : 1940 Age/S: 79 / M [address] Unit #: [id number] Loc: [place] [address] Phys: Mj Prather MD Acct: [id number] Dis Date: Status: REG ER PHONE #: [phone] Exam Date: 04/16/2020 1011 FAX #: Reason: chest pain EXAMS: CPT: [id number] XR CHEST 1 V 95473 Fluoro Time: DAP (Gy m2): Air Kerma (mGy): <Continued> Technologist: Shazia Orozco RT(R)(MR) Trnscb Date/Time: 04/16/2020 (1024) [email or web address] Orig Print D/T: S: 04/16/2020 (1027) PAGE 2 Signed ReportCBC W/O [id number] 10:11:00 Test Item Value Reference Range Interpretation Comments WHITE BLOOD CELL (test code = WBC) 9.2 K/mm3 3.5-11.0 N RED BLOOD CELL (test code = RBC) 4.75 M/mm3 4.70-6.10 N HEMOGLOBIN (test code = HGB) 14.3 G/DL 12.3-15.9 N HEMATOCRIT (test code = HCT) 45.4 % 35.8-46.7 N MEAN CELL VOLUME (test code = MCV) 95.6 Fl 86.3-98.9 N MEAN CELL HGB (test code = MCH) 30.1 pg 28.9-34.4 N MEAN CELL HGB CONCETRATION (test 31.5 G/DL 32.1-34.5 L code = MCHC) RED CELL DISTRIBUTION WIDTH (test 14.2 SD 11.5-14.5 N code = RDW) PLATELET COUNT (test code = PLT) 237 K/mm3 150-450 N MEAN PLATELET VOLUME (test code = 10.50 fL 7.0-9.6 H MPV) - CT MAXIFAC W/O [id number] 16:35:00 Name: LORELEI SIMONS [facility] : 1940 Age/S: 79 / M [address] Unit #: [id number] Loc: [place] [address] Phys: Manfred Barrientos III, MD Acct: [id number] Dis Date: Status: REG CLI PHONE #: [phone] Exam Date: 03/10/2020 1323 FAX #: Reason: CHRONIC SINUSITIS EXAMS: CPT: [id number] CT MAXIFAC W/O CONTRAST 92664 CLINICAL INFORMATION: Chronic sinusitis. Dictation location: R 16 COMPARISON: No recent prior Technique: Axial scans with sagittal and coronal reconstructions. Appro priate image optimization and dose reduction techniques were employed. DLP 425 mGy. FINDINGS: Frontal sinuses: Partial opacification of the left frontal sinus.Right clear.. Frontonasal recesses clear. Ethmoid sinuses: Bilateral extensive ethmoidbullectomy. Sphenoid sinuses: Clear. Sphenoethmoidal recesses clear. Maxillary sinuses: Retention cysts. Moderate mucosal thickening. No air-fluid levels.. Nasal passages/nasopharynx: Minimal left deviation of the inferior nasal septum. Bilateral wide medial wall antrostomy, ethmoid bullectomy and uncinectomy. The middle ear cavities and mastoids appear clear. The petrous apices bilaterally are pneumatized, with partial opacification of the right petrous apex. IMPRESSION: 1. Pansinusitis, with mucosal thickening and retention cysts, no air-fluid levels. 2. Partial opacification of the right petrous apex. 3. Extensive postsurgical change. at 1635 Reported and signed by: Luis Garza M.D. CC: Avila Pool MD; Manfred Barrientos III, MD Technologist:Sahra Francisco, RT(R)(CT); Ten CTDI: DLP: Trnscb Date/Time: 03/10/2020 (4658) DmitriV Orig Print D/T: S: 03/10/2020 (3409) PAGE 1 Signed ReportCYTOLOGY 2020-02-14 13:31:00 RUN DATE: 02/14/20 [facility] PAGE 1 RUN TIME: 1331 Specimen Inquiry RUN USER: INTERFACE PATIENT: LORELEI SIMONS LOC: ARA U #: [id number] AGE/SX: 79/M ROOM: RE02/13/20[facility] DR: Manfred Barrientos III : 44 BED: DIS: STATUS: DEP CLI TLOC: SPEC #: [id number] RECD: 02/13/20 STATUS: EYAL REJodie #: [id number] CONNIE: 02/13/[address] [facility] [address]: Manfred Barrientos III, MD ENTERED: 02/13/20 SP TYPE: CYTOLOGY OTHR D R: Avila Pool MD ORDERED: CB, CYTO SMEAR PSI, FNA, FNA AD COPIES TO: Avila Pool MD [address] [place] [place] [address] [place] [address] [email or web address] HISTOLOGY: TISSUE ID BLK PCS AMADO LEV PROCEDURE DISPOSITION ____ ___ ___ ___ THYROID GLAND A 1 2 PROCEDURES: CB (02/13/20) CYTO SMEAR PSI (02/14/20) FNA (02/13/20) FNA AD (02/13/20) TISSUES: A. THYROID GLAND, NOS - RIGHT THYROID NODULE FNA CPT CODES CPT CODE(S): 52030 , 10689 , 17863 , 78683 , , , FINAL DIAGNOSIS Thyroid, right lobe nodule, fine needle aspiration: BENIGN, CONSISTENT WITH BENIGN FOLLICULAR NODULE GROSS DESCRIPTION Right thyroid nodule FNA. Four passes are performed. Received is <1 mLof bloody fluid and eight smears. Four smears are submitted for Pap stain and four smears are submitted for Diff-Quik stain. One cell block is prepared. /ms Grossing performed at [facility] Pathology, [address], [address], [place], [place] [address]. Hot Walker: Eliel Hale M.D. CONTINUED ON NEXT PAGE RUN DATE: 02/14/20 [facility] PAGE 2 RUN TIME: 1331 Specimen Inquiry RUN USER: INTERFACE SPEC #: [facility]:[id number] PATIENT: LORELEI SIMONS #[id number] (Continued) MICROSCOPIC DESCRIPTION Right thyroid nodule FNA. Eight presmeared slides and cell block slides are reviewed. Slides are adequate for evaluation. There are large clusters and sheets of follicular cells. The follicular cells have evenly spaced nuclei. No evidence of nuclear atypia, pseudoinclusions or groovings. Background of colloid identified. No evidence of malignancy. /heriberto SPECIMEN ADEQUACY Adequacy check was performed by Dr. Mackey. Signed SIGNATURE ON FILE Alec Villeda 02/14/20 5347 END OF REPORT - USG NDL PLACEMENT (Bxg/Asp)2020-02-13 14:45:00 Name: LORELEI SIMONS : 1940 Age/S: 79 / M [address] Unit #: [id number] Loc: [place] [address] Phys: Manfred Barrientos III, MD Acct: [id number] Dis Date: Status: REG CLI PHONE #: [phone] Exam Date: 02/13/2020 1341 FAX #: Reason: THYROIDNODULE EXAMS: CPT: [id number] USG NDL PLACEMENT (Bxg/Asp) 39464 EXAMINATION: IMAGE GUIDED PERCUTANEOUS THYROID FINE NEEDLE ASPIRATION. LOCATION: S17. HISTORY: Right-sided thyroid nodule, request is made for biopsy by ENT. COMPARISON: None. SEDATION: The patient did not require conscious sedation for the procedure. TECHNIQUE: The risks, benefits and alternatives were discussed and i nformed consent was obtained. Prior to beginning the procedure, [place] Protocol was performed to confirm the patient's identity and the planned procedure. Maximum sterile barriers including cap, mask, hand hygiene, sterile gloves, sterile gown, large sterile drape and cutaneous antisepsis were used. The neck was prepped and draped in the usual sterile fashion. The overlying skin was anesthetized with 1% lidocaine. Using ultrasound guidance,four passes with a 25-gauge needle were performed into the nodule in the right thyroid lobe. The patient tolerated the procedure well. Pathology was present to determine adequacy. ESTIMATED BLOOD LOSS: Minimal. COMPLICATIONS: None. DISCHARGED TO: Outpatient recovery then home. FINDINGS: Ultrasound images demonstrate well-circumscribed 1.8 x 2.2 x 1.6 cm nodule with few punctate echogenic foci mild internal vascularity in the right mid thyroid lobe. Post biopsy images demonstrate no significant hematoma. IMPRESSION: Technically successful ultrasound- guided fine needle aspiration of a thyroid nodule. Pathology results are pending. PAGE 1 Signed Report (CONTINUED) Name: LORELEI SIMONS : 1940 Age/S: 79 / M [address] Unit #: [id number] Loc: [place] [address] Phys: Manfred Barrientos III, MD Acct: [id number] Dis Date: Status: REG CLI PHONE #: [phone] Exam Date: 02/13/2020 1345 FAX #: Reason: THYROID NODULE EXAMS: CPT: [id number] USG NDL PLACEMENT (Bxg/Asp) 07334 <Continued> at 1445 Reported and signed by: Gomez Amezquita M.D. CC: Avila Pool MD; Manfred Barrientos III, MD Technologist: Melissa Walls, RT(R),RDMS(AB) Trnscb Date/Time: 02/13/2020 (8729) HeideANS4 PAGE 2 Signed Report Name: LORELEI SIMONS : 1940 Age/S: 79 / M [address] Unit #: [id number] Loc: [place] [address] Phys: Manfred Barrientos III, MD Acct: [id number] Dis Date: Status: REG CLI PHONE #: [phone] Exam Date: 02/13/2020 1345 FAX #: Reason: THYROID NODULE EXAMS: CPT: [id number] USG NDL PLACEMENT (Bxg/Asp) 26726 <Continued> Orig Print D/T: S: 02/13/2020 (0726) Probe: PAGE 3 Signed ReportCBC W/AUTO [id number] 18:49:00 Test Item Value Reference Range Interpretation Comments WHITE BLOOD CELL (test 9.8 K/mm3 3.5-11.0 N code = WBC) RED BLOOD CELL (test 2.80 M/mm3 4.70-6.10 L code = RBC) HEMOGLOBIN (test code 7.4 G/DL 12.3-15.9 L = HGB) HEMATOCRIT (test code 25.2 % 35.8-46.7 L = HCT) MEAN CELL VOLUME (test 90.0 Fl 86.3-98.9 N code = MCV) MEAN CELL HGB (test 26.4 pg 28.9-34.4 L code = MCH) MEAN CELL HGB 29.4 G/DL 32.1-34.5 L CONCETRATION (test code = MCHC) RED CELL DISTRIBUTION 17.6 SD 11.5-14.5 H WIDTH (test code = RDW) PLATELET COUNT (test 267.0 K/mm3 150-450 N code = PLT) MEAN PLATELET VOLUME 10.40 fL 7.0-9.6 H (test code = MPV) NEUTROPHIL % (test 69.8 % 40-76 N code = NT%) LYMPHOCYTE % (test 19.6 % 20.5-51.1 L code = LY%) MONOCYTE % (test code 8.9 % 1.7-9.3 N = MO%) EOSINOPHIL % (test 1.5 % 0.0-6.0 N code = EO%) BASOPHIL % (test code 0.2 % 0.0-2.0 N = BA%) NEUTROPHIL # (test 6.81 K/mm3 1.8-7.6 N code = NT#) LYMPHOCYTE # (test 1.9 K/mm3 0.6-3.0 N code = LY#) MONOCYTE # (test code 0.9 K/mm3 0.2-1.5 N = MO#) EOSINOPHIL # (test 0.2 K/mm3 0.0-0.4 N code = EO#) BASOPHIL # (test code 0.0 K/mm3 0.0-0.2 N = BA#) MANUAL DIFF REQUIRED NO DIFF/SCN CRITERIA SLIDE R EVIEW (test code = MDIFF) CONSISTA NT WITH AUTO DIFFERENTIAL. RBC [id number] 18:49:00 Test Item Value Reference Range Interpretation Comments TARGET CELLS (test code = TGT) 2+ ON SCAN NONE A STOMATOCYTES (test code = STO) 1+ ON SCAN NONE A CBC W/AUTO [id number] 18:48:00 Test Item Value Reference Range Interpretation Comments WHITE BLOOD CELL (test 9.8 K/mm3 3.5-11.0 N code = WBC) RED BLOOD CELL (test 2.80 M/mm3 4.70-6.10 L code = RBC) HEMOGLOBIN (test code 7.4 G/DL 12.3-15.9 L = HGB) HEMATOCRIT (test code 25.2 % 35.8-46.7 L = HCT) MEAN CELL VOLUME (test 90.0 Fl 86.3-98.9 N code = MCV) MEAN CELL HGB (test 26.4 pg 28.9-34.4 L code = MCH) MEAN CELL HGB 29.4 G/DL 32.1-34.5 L CONCETRATION (test code = MCHC) RED CELL DISTRIBUTION 17.6 SD 11.5-14.5 H WIDTH (test code = RDW) PLATELET COUNT (test 267.0 K/mm3 150-450 N code = PLT) MEAN PLATELET VOLUME 10.40 fL 7.0-9.6 H (test code = MPV) NEUTROPHIL % (test 69.8 % 40-76 N code = NT%) LYMPHOCYTE % (test 19.6 % 20.5-51.1 L code = LY%) MONOCYTE % (test code 8.9 % 1.7-9.3 N = MO%) EOSINOPHIL % (test 1.5 % 0.0-6.0 N code = EO%) BASOPHIL % (test code 0.2 % 0.0-2.0 N = BA%) NEUTROPHIL # (test 6.81 K/mm3 1.8-7.6 N code = NT#) LYMPHOCYTE # (test 1.9 K/mm3 0.6-3.0 N code = LY#) MONOCYTE # (test code 0.9 K/mm3 0.2-1.5 N = MO#) EOSINOPHIL # (test 0.2 K/mm3 0.0-0.4 N code = EO#) BASOPHIL # (test code 0.0 K/mm3 0.0-0.2 N = BA#) MANUAL DIFF REQUIRED NO DIFF/SCN CRITERIA SLIDE R EVIEW (test code = MDIFF) CONSISTA NT WITH AUTO DIFFERENTIAL. CBC W/AUTO [id number] 18:48:00 Test Item Value Reference Range Interpretation Comments WHITE BLOOD CELL (test 9.8 K/mm3 3.5-11.0 N code = WBC) RED BLOOD CELL (test 2.80 M/mm3 4.70-6.10 L code = RBC) HEMOGLOBIN (test code 7.4 G/DL 12.3-15.9 L = HGB) HEMATOCRIT (test code 25.2 % 35.8-46.7 L = HCT) MEAN CELL VOLUME (test 90.0 Fl 86.3-98.9 N code = MCV) MEAN CELL HGB (test 26.4 pg 28.9-34.4 L code = MCH) MEAN CELL HGB 29.4 G/DL 32.1-34.5 L CONCETRATION (test code = MCHC) RED CELL DISTRIBUTION 17.6 SD 11.5-14.5 H WIDTH (test code = RDW) PLATELET COUNT (test 267.0 K/mm3 150-450 N code = PLT) MEAN PLATELET VOLUME 10.40 fL 7.0-9.6 H (test code = MPV) NEUTROPHIL % (test 69.8 % 40-76 N code = NT%) LYMPHOCYTE % (test 19.6 % 20.5-51.1 L code = LY%) MONOCYTE % (test code 8.9 % 1.7-9.3 N = MO%) EOSINOPHIL % (test 1.5 % 0.0-6.0 N code = EO%) BASOPHIL % (test code 0.2 % 0.0-2.0 N = BA%) NEUTROPHIL # (test 6.81 K/mm3 1.8-7.6 N code = NT#) LYMPHOCYTE # (test 1.9 K/mm3 0.6-3.0 N code = LY#) MONOCYTE # (test code 0.9 K/mm3 0.2-1.5 N = MO#) EOSINOPHIL # (test 0.2 K/mm3 0.0-0.4 N code = EO#) BASOPHIL # (test code 0.0 K/mm3 0.0-0.2 N = BA#) MANUAL DIFF REQUIRED NO DIFF/SCN CRITERIA SLIDE R EVIEW (test code = MDIFF) CONSISTA NT WITH AUTO DIFFERENTIAL. CBC W/AUTO [id number] 18:15:00 Test Item Value Reference Range Interpretation Comments WHITE BLOOD CELL (test code = 9.8 K/mm3 3.5-11.0 N WBC) RED BLOOD CELL (test code = RBC) 2.80 M/mm3 4.70-6.10 L HEMOGLOBIN (test code = HGB) 7.4 G/DL 12.3-15.9 L HEMATOCRIT (test code = HCT) 25.2 % 35.8-46.7 L MEAN CELL VOLUME (test code = 90.0 Fl 86.3-98.9 N MCV) MEAN CELL HGB (test code = MCH) 26.4 pg 28.9-34.4 L MEAN CELL HGB CONCETRATION (test 29.4 G/DL 32.1-34.5 L code = MCHC) RED CELL DISTRIBUTION WIDTH (test 17.6 SD 11.5-14.5 H code = RDW) PLATELET COUNT (test code = PLT) 267.0 K/mm3 150-450 N MEAN PLATELET VOLUME (test code = 10.40 fL 7.0-9.6 H MPV) NEUTROPHIL % (test code = NT%) % 40-76 N LYMPHOCYTE % (test code = LY%) % 20.5-51.1 L MONOCYTE % (test code = MO%) % 1.7-9.3 N EOSINOPHIL % (test code = EO%) % 0.0-6.0 N BASOPHIL % (test code = BA%) % 0.0-2.0 N NEUTROPHIL # (test code = NT#) K/mm3 1.8-7.6 N LYMPHOCYTE # (test code = LY#) K/mm3 0.6-3.0 N MONOCYTE # (test code = MO#) K/mm3 0.2-1.5 N EOSINOPHIL # (test code = EO#) K/mm3 0.0-0.4 N BASOPHIL # (test code = BA#) K/mm3 0.0-0.2 N MANUAL DIFF REQUIRED (test code = DIFF/SCN CRITERIA MDIFF) Culture, Wound [id number] 11:36:00Specimen: FootCollected: 10/18/2016 13:00 Status: Final Last Updated: 10/22/2016 11:36Gram Stain (Final) (Final) 10/19/16 No organsims seen, No WBC's seen Culture Result (Final) (Final) 10/19/16 Growth too young to evaluate at 24 hours-reincubated 10/20/16 Many Diphtheroids 10/21/16 Anaerobic culture:No anaerobes isolated at 3 daysCulture, Wound [id number] 09:33:00Specimen: ToeCollected: 10/18/2016 13:00 Status: Final Last Updated: 10/21/2016 09:33 Gram Stain (Final) (Final) 10/19/16 No WBC'S , Few Gram variable rods Culture Result (Final) (Final) 10/19/16 Growth too young to evaluate at 24 hours- reincubated 10/20/16 Many Diphtheroids 10/21/16 Anaerobic culture:No anaerobes isolated at 3 days
[2020-07-09] MEDS: PIPER/TAZO/NS 3.375gm 3.375 GM/100 ML BAG IVPB SCH ×3 (00:12→16:01)
[2020-07-09] MEDS ORDERED: GLUCAGON 1 MG/VIAL IM PRN (01:19)
[2020-07-09] MEDS ORDERED: D50W 25 GM/50 ML SYRINGE IV PRN (01:19)
[2020-07-09 05:57] LABS: Hematocrit 37.7 % (39.6-49.0); MPV 9.1 fL (7.6-11.3); RBC Red Blood Cell Count 4.24 M/uL (4.33-5.43)
[2020-07-09] MEDS: INSULIN -REGULAR HUMAN 50 UNIT/0.5 ML ML SQ SCH ×3 (06:00→18:00)
[2020-07-09 06:11] LABS: Magnesium 2.5 mg/dL (1.8-2.4); Phosphorus 2.7 mg/dL (2.5-4.9); Potassium 4.1 mmol/L (3.5-5.1)
[2020-07-09] MEDS: ENOXAPARIN 30 MG/0.3 ML SQ SCH (09:19)
[2020-07-09] MEDS: METOPROLOL TAR 25 MG TAB PO SCH ×2 (09:21→20:32)
[2020-07-09] MEDS: BACLOFEN 10 MG TAB PO SCH (09:21)
[2020-07-09] MEDS: DULOXETINE 30 MG CAP PO SCH (09:21)
[2020-07-09] MEDS: HYDRALAZINE HCL 25 MG TABLET PO SCH (09:23)
[2020-07-09] MEDS: FUROSEMIDE 20 MG TABLET PO SCH (09:24)
[2020-07-09] MEDS: ATORVASTATIN 10 MG TAB PO SCH (09:24)
[2020-07-09] MEDS: SPIRONOLACTONE 25 MG TABLET PO SCH (09:25)
[2020-07-09] MEDS: HYDROMORPHONE HCL 1 MG/ML INJ IV PRN ×2 (10:40→18:28)
[2020-07-09] MEDS ORDERED: D50W 25 GM/50 ML VIAL IV PRN (12:00)
[2020-07-09] MEDS: Ringers Lactate 1,000 ML IV SCH (12:08)
[2020-07-09] MEDS: ONDANSETRON 4 MG/2 ML VIAL IV PRN ×3 (12:09→20:42)
[2020-07-09] MEDS: METOCLOPRAMIDE 10 MG/2mL INJ IV PRN (14:39)
[2020-07-09] MEDS ORDERED: HYDROCOD 2.5mg-ACETAMIN 108mg/5mL Soln FT PRN (15:43)
--- NOTE | 2020-07-09 15:52 | P.PN ---
Subjective Date of Service: 07/09/20 Chief Complaint: resp failure Patient has some nausea and emesis, more abdominal pain today, tolerated tube feeding up to 55cc / hr for a short interval, but felt bloated. He feels better now, continues to have mild intermittent nausea, but pain resolved at this time. Physical Examination - Vital Signs Temperature: 97.8 F Blood Pressure: 183/92 Pulse: 70 Respirations: 18 Pulse Ox (%): 67 - Physical Exam General: Alert, In no apparent distress, Cooperative Respiratory: Diminished Gastrointestinal: Other (soft, mild appropriate TTP, ND, hernia palpable, reducible, no rebound, no guarding, J tube in place. no leakage) - Studies Laboratory Data (last 24 hrs) 07/09/20 05:36: Sodium 142, Potassium 4.1, BUN 25 H, Creatinine 1.30, Glucose 182 H, Phosphorus 2.7, Magnesium 2.5 H 07/09/20 05:36: WBC 15.80 H, Hgb 12.2 L, Hct 37.7 L, Plt Count 239 Assessment And Plan - Current Problems (Diagnosis) (1) Esophageal cancer Current Visit: Yes Status: Acute Plan: 79 year old man with esophageal cancer s/p open jejunostomy tube feeding placement, had adhesiolysis, and lap procedure converted to open due to scar, anticipate post op ileus - oxygen therapy - hold tube feeding for now, will restart soon - add lortab elixer via j tube prn - continue iv hydration - will add hydralazine for hypertension - serial abdominal exams - continue medical management per Dr. Pool
[2020-07-09] MEDS: HYDRALAZINE HCL 20 MG/ML VIAL IV PRN (16:00)
[2020-07-09] MEDS ORDERED: PROMETHAZINE INJ 25 MG/ML AMP IV ONE (17:00)
--- NOTE | 2020-07-09 18:03 | P.PN ---
Subjective Date of Service: 07/09/20 Chief Complaint: resp failure Subjective: Improving HE DOES NOT HAVE ANY ACUTE PAIN OR DYSPNEA. HE HAS NO FEVER. Review of Systems 10-point ROS is otherwise unremarkable General: Weakness Physical Examination - Vital Signs Temperature: 97.8 F Blood Pressure: 183/92 Pulse: 70 Respirations: 18 Pulse Ox (%): 67 - Physical Exam General: Mild distress HEENT: Atraumatic, PERRLA, EOMI Neck: Supple, JVD not distended Respiratory: Diminished Cardiovascular: Regular rate/rhythm, Normal S1 S2 Gastrointestinal: Normal bowel sounds, No tenderness Musculoskeletal: No tenderness Integumentary: No rashes Neurological: Normal speech, Normal tone, Normal affect Lymphatics: No axilla or inguinal lymphadenopathy - Studies Laboratory Data (last 24 hrs) 07/09/20 05:36: Sodium 142, Potassium 4.1, BUN 25 H, Creatinine 1.30, Glucose 182 H, Phosphorus 2.7, Magnesium 2.5 H 07/09/20 05:36: WBC 15.80 H, Hgb 12.2 L, Hct 37.7 L, Plt Count 239 Medications List Reviewed: Yes Assessment And Plan - Current Problems (Diagnosis) (1) Aspiration pneumonia Current Visit: Yes Status: Acute Plan: IV ZOSYN ESOPHAGEAL CANCER PATIENTS CAN ASPIRATE. HE WILL FU WITH ONCOLOGIST. CHECK LAB DAILY ASPIRATION MAY HAPPENED OVER LAST FEW WEEKS OFF AND ON. (2) Esophageal cancer Current Visit: Yes Status: Acute Plan: PROGNOSIS IS GUARDED HE HAS MANY OTHER ISSUES. DR. GIBBONS CALLED. SHE SAYS THE TUMOR DID NOT LIGHT UP IN PET SCAN AND SO MAY BE SUPERFICIAL BUT AGAIN IT IS VERY SYMPTOMATIC WITH DYAPHGIA. PROGNOSIS IS POOR WITH ALL OTHER MEDICAL PROBLEMS HE HAS. HE HAS CHF, CAD, A FIB, HTN, CKD, DIABETES WITH NEUROPATHY, VASCULOPATHY. HIS LFT ARE HIGH AND NEEDS ERCP BUT I WOULD SAY THAT WILL HIGH RISK FOR HIM. HE IS ANGRY AT MANY PEOPLE PER FAMILY. I CHANGED SOME MEDS TO BE ABLE TO BE CRUSHED FOR J TUBE. (3) Diabetes mellitus Onset Date: 08/04/17 Current Visit: No Status: Chronic Qualifiers: Diabetes mellitus type: type 2 Diabetes mellitus complication status: with skin complications Diabetes mellitus complication detail: with foot ulcer
[2020-07-09] MEDS ORDERED: SODIUM CHLORIDE 0.9% 10ML INJ IV PRN (19:24)
[2020-07-09] MEDS: PANTOPRAZOLE 40 MG INJ IVP SCH (20:33)
[2020-07-10] MEDS: Ringers Lactate 1,000 ML IV SCH (01:18)
[2020-07-10] MEDS: METOCLOPRAMIDE 10 MG/2mL INJ IV PRN ×2 (01:28→12:56)
[2020-07-10] MEDS: PIPER/TAZO/NS 3.375gm 3.375 GM/100 ML BAG IVPB SCH ×3 (01:28→17:36)
[2020-07-10] MEDS: HYDROMORPHONE HCL 1 MG/ML INJ IV PRN ×3 (02:32→17:36)
[2020-07-10] MEDS: INSULIN -REGULAR HUMAN 50 UNIT/0.5 ML ML SQ SCH ×4 (06:00→18:00)
[2020-07-10 06:09] LABS: Absolute Lymphocytes (CBC) 1.4 K/uL (0.7-4.9); Basophils % 0.4 % (0-1.3); Hematocrit 38.1 % (39.6-49.0); Lymphocytes % 9.1 % (15.3-44.8); RBC Red Blood Cell Count 4.24 M/uL (4.33-5.43)
[2020-07-10 06:23] LABS: Potassium 3.5 mmol/L (3.5-5.1)
[2020-07-10] MEDS ORDERED: KCL 20 MEQ/100 mL IVPB 20 MEQ/100 ML BAG IV SCH (08:00)
[2020-07-10] MEDS: SPIRONOLACTONE 25 MG TABLET PO SCH (09:39)
[2020-07-10] MEDS: FUROSEMIDE 20 MG TABLET PO SCH (09:39)
[2020-07-10] MEDS: DULOXETINE 30 MG CAP PO SCH (09:39)
[2020-07-10] MEDS: ATORVASTATIN 10 MG TAB PO SCH (09:39)
[2020-07-10] MEDS: HYDRALAZINE HCL 25 MG TABLET PO SCH (09:39)
[2020-07-10] MEDS: METOPROLOL TAR 25 MG TAB PO SCH ×2 (09:40→21:37)
[2020-07-10] MEDS: PANTOPRAZOLE 40 MG INJ IVP SCH ×2 (09:40→21:37)
[2020-07-10] MEDS: ONDANSETRON 4 MG/2 ML VIAL IV PRN ×2 (09:42→17:36)
[2020-07-10] MEDS: ENOXAPARIN 30 MG/0.3 ML SQ SCH (09:42)
--- NOTE | 2020-07-10 12:51 | P.PN ---
Subjective Date of Service: 07/10/20 Chief Complaint: resp failure Subjective: Improving HE DOES NOT HAVE ANY ACUTE PAIN OR DYSPNEA. HE HAS NO FEVER. HE IS A LOT BETTER TODAY. HE HAS SOME VOMITING, REGURGITATION STILL GOING ON. Review of Systems 10-point ROS is otherwise unremarkable General: Weakness, Malaise Physical Examination - Vital Signs Temperature: 97.5 F Blood Pressure: 134/90 Pulse: 67 Respirations: 20 Pulse Ox (%): 96 - Physical Exam General: Alert, Mild distress HEENT: Atraumatic, PERRLA, EOMI Neck: Supple, JVD not distended Respiratory: Crackles/rales (L BASAL BRONCHIAL BREATHING.) Cardiovascular: Regular rate/rhythm, Normal S1 S2 Gastrointestinal: Normal bowel sounds, No tenderness Musculoskeletal: No tenderness Integumentary: No rashes Neurological: Normal speech, Normal tone, Normal affect Lymphatics: No axilla or inguinal lymphadenopathy - Studies Laboratory Data (last 24 hrs) 07/10/20 05:41: Sodium 142, Potassium 3.5, BUN 27 H, Creatinine 1.35 H, Glucose 169 H 07/10/20 05:41: WBC 15.50 H, Hgb 12.0 L, Hct 38.1 L, Plt Count 323 D Medications List Reviewed: Yes Assessment And Plan - Current Problems (Diagnosis) (1) Aspiration pneumonia Current Visit: Yes Status: Acute Plan: IV ZOSYN ESOPHAGEAL CANCER PATIENTS CAN ASPIRATE. HE WILL FU WITH ONCOLOGIST. CHECK LAB DAILY ASPIRATION MAY HAPPENED OVER LAST FEW WEEKS OFF AND ON. CONT IV ZOSYN WBC STILL HIGH. MAY BE ABLE TO GO HOME IN AM. (2) Esophageal cancer Current Visit: Yes Status: Acute Plan: PROGNOSIS IS GUARDED HE HAS MANY OTHER ISSUES. DR. GIBBONS CALLED. SHE SAYS THE TUMOR DID NOT LIGHT UP IN PET SCAN AND SO MAY BE SUPERFICIAL BUT AGAIN IT IS VERY SYMPTOMATIC WITH DYAPHGIA. PROGNOSIS IS POOR WITH ALL OTHER MEDICAL PROBLEMS HE HAS. HE HAS CHF, CAD, A FIB, HTN, CKD, DIABETES WITH NEUROPATHY, VASCULOPATHY. HIS LFT ARE HIGH AND NEEDS ERCP BUT I WOULD SAY THAT WILL HIGH RISK FOR HIM. HE IS ANGRY AT MANY PEOPLE PER FAMILY. I CHANGED SOME MEDS TO BE ABLE TO BE CRUSHED FOR J TUBE. PROGNOSIS IS POOR. THIS IS AND ADVANCED CANCER IN A POOR CONDITIONED BODY. (3) Diabetes mellitus Onset Date: 08/04/17 Current Visit: No Status: Chronic Qualifiers: Diabetes mellitus type: type 2 Diabetes mellitus complication status: with skin complications Diabetes mellitus complication detail: with foot ulcer
--- NOTE | 2020-07-10 12:57 | P.PN ---
Subjective Date of Service: 07/10/20 Chief Complaint: resp failure Patient has some nausea and emesis, much less abdominal pain today, He feels better now, continues to have mild intermittent nausea, but pain resolved at this time. no bowel function yet Physical Examination - Vital Signs Temperature: 97.5 F Blood Pressure: 134/90 Pulse: 67 Respirations: 20 Pulse Ox (%): 96 - Physical Exam General: Alert, In no apparent distress, Cooperative Respiratory: Normal air movement, Dull Gastrointestinal: Other (soft, mild appropriate TTP, non-distended, incision is clean and dry, J-tube in place, periumbilical hernia is easily reducible.) - Studies Laboratory Data (last 24 hrs) 07/10/20 05:41: Sodium 142, Potassium 3.5, BUN 27 H, Creatinine 1.35 H, Glucose 169 H 07/10/20 05:41: WBC 15.50 H, Hgb 12.0 L, Hct 38.1 L, Plt Count 323 D Medications List Reviewed: Yes Assessment And Plan - Current Problems (Diagnosis) (1) Esophageal cancer Current Visit: Yes Status: Acute Plan: 79 year old man with esophageal cancer s/p open jejunostomy tube feeding placement, had adhesiolysis, and lap procedure converted to open due to scar, anticipate post op ileus - oxygen therapy - hold tube feeding for now, will restart soon - add lortab elixer via j tube prn - continue iv hydration - will add hydralazine for hypertension - serial abdominal exams - continue medical management per Dr. Pool
[2020-07-11] MEDS: ONDANSETRON 4 MG/2 ML VIAL IV PRN (00:44)
[2020-07-11] MEDS: PIPER/TAZO/NS 3.375gm 3.375 GM/100 ML BAG IVPB SCH ×3 (00:46→16:20)
[2020-07-11] MEDS: INSULIN -REGULAR HUMAN 50 UNIT/0.5 ML ML SQ SCH ×4 (06:00→17:27)
[2020-07-11 06:05] LABS: Absolute Lymphocytes (CBC) 1.4 K/uL (0.7-4.9); Basophils % 0.1 % (0-1.3); Hematocrit 39.5 % (39.6-49.0); Lymphocytes % 10.5 % (15.3-44.8); MPV 8.9 fL (7.6-11.3); RBC Red Blood Cell Count 4.34 M/uL (4.33-5.43)
[2020-07-11 06:17] LABS: Magnesium 2.6 mg/dL (1.8-2.4); Phosphorus 2.9 mg/dL (2.5-4.9); Potassium 3.7 mmol/L (3.5-5.1)
[2020-07-11 07:17] LABS: Blood Morphology Comment NOTED (NOT SEEN); Platelet Estimate ADEQ
[2020-07-11 07:18] LABS: Stomatocytes 1+
[2020-07-11] MEDS ORDERED: KCL 20 MEQ/100 mL IVPB 20 MEQ/100 ML BAG IV SCH (08:00)
[2020-07-11] MEDS: ENOXAPARIN 30 MG/0.3 ML SQ SCH (09:25)
[2020-07-11] MEDS: DULOXETINE 30 MG CAP PO SCH (09:26)
[2020-07-11] MEDS: PANTOPRAZOLE 40 MG INJ IVP SCH (09:26)
[2020-07-11] MEDS: SPIRONOLACTONE 25 MG TABLET PO SCH (09:26)
[2020-07-11] MEDS: METOPROLOL TAR 25 MG TAB PO SCH (09:27)
[2020-07-11] MEDS: ATORVASTATIN 10 MG TAB PO SCH (09:27)
[2020-07-11] MEDS: FUROSEMIDE 20 MG TABLET PO SCH (09:27)
--- NOTE | 2020-07-11 11:38 | P.PN ---
Subjective Date of Service: 07/11/20 Chief Complaint: resp failure Subjective: Improving Patient has much less abdominal pain today, continues to have mild intermittent nausea. Tolerated tube feedings from 3pm to 8 am without issues Physical Examination - Vital Signs Temperature: 98 F Blood Pressure: 180/81 Pulse: 65 Respirations: 20 Pulse Ox (%): 95 - Physical Exam General: Alert, In no apparent distress, Cooperative Gastrointestinal: Other (soft, mild appropriate TTP, ND, umbilical hernia reducible without pain, - tube funtioning well) - Studies Laboratory Data (last 24 hrs) 07/11/20 : Sodium Cancelled, Potassium Cancelled, BUN Cancelled, Creatinine Cancelled, Glucose Cancelled 07/11/20 05:25: Sodium 143, Potassium 3.7, BUN 34 H, Creatinine 1.45 H, Glucose 148 H, Phosphorus 2.9, Magnesium 2.6 H 07/11/20 05:25: WBC 13.00 H D, Hgb 12.5 L, Hct 39.5 L, Plt Count 330 Medications List Reviewed: Yes Assessment And Plan - Current Problems (Diagnosis) (1) Esophageal cancer Current Visit: Yes Status: Acute Plan: 79 year old man with esophageal cancer s/p open jejunostomy tube feeding placement, had adhesiolysis, and lap procedure converted to open due to scar, anticipate post op ileus - oxygen therapy - advacene tube feedings to goal per nutrition recommendations - add lortab elixer via j tube prn - patient wishes to discuss hospice, discussed with - continue medical management per Dr. Pool
--- NOTE | 2020-07-11 12:18 | P.DS ---
Admission Date: 07/08/20 Discharge Date: 07/11/20 Disposition: DC HOME/HOME HEALTH CARE Discharge Condition: GOOD Reason for Admission: resp failure - Problems (1) Aspiration pneumonia Current Visit: Yes Status: Acute (2) Esophageal cancer Current Visit: Yes Status: Acute (3) Diabetes mellitus Onset Date: 08/04/17 Current Visit: No Status: Chronic Qualifiers: Diabetes mellitus type: type 2 Diabetes mellitus complication status: with skin complications Diabetes mellitus complication detail: with foot ulcer Brief History of Present Illness: DYSPNEA. MR. SIMONS IS A PATIENT WITH ESOPHAGEAL CANCER WHO NEEDS PORT PLACEMENT FOR CHEMOTHERAPY, HAD DYSPNEA AFTER ANESTHESIA, ON CT SCAN HE SHOWS LOWER LOBE PNEUMONIA. INITIALLY THEY CALLED IN WRONG DOCTORS NOT KNOWING HE IS MY PATIENT. I CHANGED ABX TO ZOSYN HIS WBC COUNT IS HIGHER. MR. SIMONS HAS ASPIRATION PNEUMONIA, HE HAS DONE BETTER WITH ABX. WBC IS DOWN TO 13K. HE FEELS BETTER. UNFORTUNATELY ESOPHAGEAL CANCER IS NOT AND EASY CANCER TO DEAL WITH. HIS MEDICAL CONDITION IS POOR FROM BEFORE THIS CANCER. HE UNDERSTANDS. I TOLD HIM THAT AT ANY POINT IF HE IS NOT DOING WELL AND WANTS TO GET ON HOSPICE THEN LET ME KNOW. Vital Signs/Physical Exam: Temp Pulse Resp BP Pulse Ox 98 F 65 20 180/81 H 95 07/11/20 11:38 07/11/20 11:38 07/11/20 11:38 07/11/20 11:38 07/11/20 11:38 Laboratory Data at Discharge: WBC 13.00 K/uL (4.3-10.9) H D 07/11/20 05:25 Hgb 12.5 g/dL (13.6-17.9) L 07/11/20 05:25 Hct 39.5 % (39.6-49.0) L 07/11/20 05:25 Plt Count 330 K/uL (152-406) 07/11/20 05:25 PT 12.1 SECONDS (9.5-12.5) 07/03/20 12:26 INR 1.05 07/03/20 12:26 APTT 30.1 SECONDS (24.3-36.9) 07/03/20 12:26 Sodium Cancelled 07/11/20 Unknown Potassium Cancelled 07/11/20 Unknown BUN Cancelled 07/11/20 Unknown Creatinine Cancelled 07/11/20 Unknown Glucose Cancelled 07/11/20 Unknown Phosphorus 2.9 mg/dL (2.5-4.9) 07/11/20 05:25 Magnesium 2.6 mg/dL (1.8-2.4) H 07/11/20 05:25 Home Medications: Baclofen 10 mg PO BID 08/06/19 Hydrocodone/Acetaminophen [[place] 10-325 Tablet] 1 each PO TID PRN 08/06/19 Pravastatin Sodium 10 mg PO DAILY 08/06/19 Spironolactone 50 mg PO DAILY 08/06/19 Furosemide 20 mg PO DAILY #90 tablet 08/07/19 Hydralazine HCl 25 mg PO DAILY 07/03/20 Metoprolol Tartrate 1 tab PO BID 07/07/20 Semaglutide [Ozempic] 0.25 mg SQ Q7D 07/08/20 Amox/Clavulanate [Augmentin 875-125 Tab] 1 each PO BID #20 tab 07/11/20 New Medications: Amox/Clavulanate [Augmentin 875-125 Tab] 1 each PO BID #20 tab Activity: No lifting more than 10 lbs Followup: Avila Pool MD [Primary Care Provider] -
[2020-07-11 12:26] VITALS: O2SAT 95
[2020-07-11 16:34] VITALS: TEMP 97.3
[2020-07-11] MEDS: HYDRALAZINE HCL 20 MG/ML VIAL IV PRN (16:44)
[2020-07-11 18:09] VITALS: BP 163/72
== END 2020-07-11 18:45 | DRG 166 ==
LOC: OR 11:20 → 2ND 15:09 → ERHOLD 17:52 → 2ND 19:06 → OBSVTOIN 07-08 20:38
PROVIDERS: ADMIT Internal Medicine; ATTEND Internal Medicine
PROC: 0JH60WZ Insertion of Totally Implantable Vascular Access Device into Chest Subcutaneous Tissue and Fascia, Open Approach (ICD-10-PCS; 2020-07-07)
PROC: 02HV33Z Insertion of Infusion Device into Superior Vena Cava, Percutaneous Approach (ICD-10-PCS; 2020-07-07)
PROC: B5181ZA Fluoroscopy of Superior Vena Cava using Low Osmolar Contrast, Guidance (ICD-10-PCS; 2020-07-07)
PROC: 3E1M38Z Irrigation of Peritoneal Cavity using Irrigating Substance, Percutaneous Approach (ICD-10-PCS; 2020-07-07)
PROC: 0DHA0UZ Insertion of Feeding Device into Jejunum, Open Approach (ICD-10-PCS; 2020-07-07)
PROC: 5A1935Z Respiratory Ventilation, Less than 24 Consecutive Hours (ICD-10-PCS; principal; 2020-07-07 13:00)
PROC: 0BH17EZ Insertion of Endotracheal Airway into Trachea, Via Natural or Artificial Opening (ICD-10-PCS; 2020-07-07 13:00)
DX: J69.0 Pneumonitis due to inhalation of food and vomit (principal); J96.01 Acute respiratory failure with hypoxia; J96.02 Acute respiratory failure with hypercapnia; C15.9 Malignant neoplasm of esophagus, unspecified; I50.22 Chronic systolic (congestive) heart failure; I13.0 Hypertensive heart and chronic kidney disease with heart failure and stage 1 through stage 4 chronic kidney disease, or unspecified chronic kidney disease; K56.7 Ileus, unspecified; E44.0 Moderate protein-calorie malnutrition; N17.9 Acute kidney failure, unspecified; N18.2 Chronic kidney disease, stage 2 (mild); E11.22 Type 2 diabetes mellitus with diabetic chronic kidney disease; E11.40 Type 2 diabetes mellitus with diabetic neuropathy, unspecified; E11.621 Type 2 diabetes mellitus with foot ulcer; L97.509 Non-pressure chronic ulcer of other part of unspecified foot with unspecified severity; I25.10 Atherosclerotic heart disease of native coronary artery without angina pectoris; I48.91 Unspecified atrial fibrillation; E78.5 Hyperlipidemia, unspecified; F17.200 Nicotine dependence, unspecified, uncomplicated; R13.10 Dysphagia, unspecified; Z79.899 Other long term (current) drug therapy; Z68.25 Body mass index [BMI] 25.0-25.9, adult; Z53.31 Laparoscopic surgical procedure converted to open procedure; Z89.411 Acquired absence of right great toe; Z90.49 Acquired absence of other specified parts of digestive tract; Z60.2 Problems related to living alone; Z20.822 Contact with and (suspected) exposure to COVID-19
CPT/HCPCS: 36415; 71045; 71046; 76000; 80048; 82805; 82947; 83735; 84100; 85025; 85027; 85610; 85730; 88108; 88305; 93005; 94002; 94010; 97116; 97161; C1788; C9113; J0360; J0690; J1100; J1170; J1644; J1650; J2250; J2310; J2405; J2543; J2550; J2704; J2710; J2765; J3010; J3480; J7030; J7120; U0002